=== PATIENT | female | born 1960 | race Caucasian/White ===

== ENCOUNTER → 2018-05-08 15:57 | Outpatient (CLI) | payer OTHER, SELFPAY ==
--- NOTE | 2018-05-08 16:01 | DI.RAD.S_ITS ---
PROCEDURE: XR CHEST 2V INDICATIONS: COUGH TECHNIQUE: 2 views of the chest were acquired. COMPARISON: None. FINDINGS: Surgical changes and devices: None. Lungs and pleura: No pleural effusions or pneumothorax. Lungs are clear. Mediastinum: Mediastinal contours are normal. Heart size is normal. Bones and chest wall: No suspicious bony abnormalities. Soft tissues appear unremarkable. IMPRESSION: No acute disease. Dictated by: Delmar Espinoza M.D. on 05/08/2018 at 17:05 Approved by: Delmar Espinoza M.D. on 05/08/2018 at 17:06
== END ==
PROVIDERS: Family Provider Family Medicine; PCP Family Medicine; Visit Provider Family Medicine
DX: R05 Cough (principal)
CPT/HCPCS: 71046

== ENCOUNTER → 2018-06-01 15:21 | Outpatient (CLI) | payer OTHER, SELFPAY ==
--- NOTE | 2018-06-01 | DI.MG.S_ITS ---
BILATERAL DIGITAL SCREENING MAMMOGRAM 3D/2D WITH CAD: 06/01/2018 CLINICAL: Routine screening. Family history of breast cancer. Comparison is made to exams dated: 05/12/2017 mammogram, 05/11/2016 mammogram, and 05/09/2015 mammogram - [facility]. The tissue of both breasts is heterogeneously dense. This may lower the sensitivity of mammography. Current study was also evaluated with a Computer Aided Detection (CAD) system. No significant masses, calcifications, or other findings are seen in either breast. There has been no significant interval change. IMPRESSION: NEGATIVE There is no mammographic evidence of malignancy. A 1 year screening mammogram is recommended. This exam was interpreted at Station ID: [id number]. NOTE: For mammograms, a report in lay terms will be sent to the patient. Approximately 15% of breast malignancies will not be visualized mammographically. In the management of a palpable breast mass, a negative mammogram must not discourage biopsy of a clinically suspicious lesion. Electronically Signed By: Cyn wilcox/karla:06/02/2018 09:17:33 letter sent: Normal Exam ACR BI-RADS Category 1: Negative [id number]
== END ==
PROVIDERS: Family Provider Family Medicine; PCP Family Medicine; Visit Provider Family Medicine
DX: Z12.31 Encounter for screening mammogram for malignant neoplasm of breast (principal); Z80.3 Family history of malignant neoplasm of breast
CPT/HCPCS: 77063; 77067

== ENCOUNTER 2019-06-23 20:13 | Observation (INO) | payer OTHER, SELFPAY ==
[2019-06-23] VITALS (7 sets, daily range): BP systolic 135–162; BP diastolic 79–92; PULSE 55–69; RESP 11–16; TEMP 36.4; O2SAT 96–100; BMI 25.4
--- NOTE | 2019-06-23 20:20 | ED.TRAUMA ---
HPI - Trauma General Chief Complaint: Trauma Stated Complaint: Modified trauma Time Seen by Provider: 06/23/19 20:19 Source: patient and EMS Mode of arrival: EMS Limitations: other (etoh) History of Present Illness HPI narrative: This is a 58-year-old female who comes with complaint of fall down the stairs patient does not know how long she was floor. She is complaining of left cheek pain as well as a cut and some pain over eye. Patient states she did couple alcoholic drinks today. She is complaining of neck pain or back pain but did complain weakness right arm. Patient denies any chest pain shortness breath. She had 1 episode of vomiting and route with EMS. Patient is able to move her lower extremities without any issue. She is able to lift her left arm without any issue. She denies any medical problems, denies any blood thinners. Denies any surgeries. She denies tobacco, states she does drink a couple alcoholics drinks daily, denies illicit. She is her is the 1 that found her on the floor. Related Data Home Medications Medication Instructions Recorded Confirmed Lactobacillus acidophilus 1 tab PO QDAY #0 05/31/16 06/23/19 ascorbic acid (vitamin C) 500 mg PO QDAY #0 05/31/16 06/23/19 magnesium citrate 100 mg PO QDAY #0 05/31/16 06/23/19 multivitamin [Multiple Vitamins] 1 tab PO QDAY #0 05/31/16 06/23/19 vitamin B complex [B 1 tab PO QDAY #0 05/31/16 06/23/19 Complex-Vitamin B12] Allergies Allergy/AdvReac Type Severity Reaction Status Date / Time Sulfa (Sulfonamide Allergy Unknown Verified 06/23/19 21:15 Antibiotics) [SULFA (SULFONAMIDE ANTIBIOTICS)] Review of Systems Review of Systems ROS Unobtainable: All systems reviewed & are unremarkable except as noted in HPI and below Patient History Social History household members: spouse Smoking Status: Never smoker alcohol intake: current Smoking Status: Never smoker alcohol intake frequency: 0-2 drinks per day Substance Use Type: does not use Exam Narrative Exam Narrative: GEN: C-collar prior to arrival Patient appears in mild distress. HEAD: Patient has a superficial 0.5 cm laceration of the left upper lid adjacent to the brow does not appear to be in the subcutaneous tissue, no raccoon/Rios sign. patient also has a 2nd small cm laceration of the right cheek. NECK: Nontender, painless range of motion, trachea midline Positive Nexus criteria, no line tenderness, distracting injury, altered mental status, neuro deficit, positive recent EtOH. EYES: PERRLA, EOMI ENT: Patient has swelling of the right upper eyelid, extraocular movements are intact, trachea is midline, TM's are normal no hemotypanum, Nares are clear, no septal hematoma, no dental or oral injury, airway is normal and with normal occlusion, No bony tenderness RESP: Chest is nontender and has symmetric movement, no ecchymosis, breath sounds are normal no crackles, wheezes or rales CVS: Heart sounds are normal, no murmur noted, No JVD. ABG/GI: Nontender, soft, normal bowel sounds, no distention, no organomegaly, pelvic rock is negative NEURO: Oriented AOx3, neuro is grossly intact, sensation and motor is normal all 4 extremities moving, cranial nerves II through XII are intact, GCS is 15 PSYCH: Normal mood and affect SKIN: Intact, warm and dry, no crepitus and without decubitus BACK: No CVA tenderness, no vertebral tenderness, no step-off's, no crepitus EXT: Atraumatic, hips are nontender, no pedal edema, normal color and temperature, normal range of motion of extremities with normal tendon exam, 2+ pulses in all four extremities Initial Vital Signs Initial Vital Signs: Vital Signs Temperature 97.5 F L 06/23/19 20:15 Pulse Rate 62 06/23/19 20:15 Respiratory Rate 16 06/23/19 20:15 Blood Pressure 162/92 H 06/23/19 20:15 Pulse Oximetry 100 06/23/19 20:15 Course Orders Ordered: ED Orders 06/23/19 20:35 Complete Blood Count AUTO DIFF Stat Comprehensive Metabolic Panel Stat Ethanol (ETOH) Stat Lipase Stat Partial Thromboplastin Time Stat Prothrombin Time INR Stat Troponin & CK Cardiac Panel Stat Type and Screen Stat Sodium Chloride (Normal Saline 0.9%) 1,000 mls @ 150 mls/hr IV CONT DILEEP Last Infusion: 06/23/19 22:00 Dose: 0 mls/hr Documented by: Admin: 06/23/19 20:40 Dose: 150 mls/hr Documented by: DAMION Discontinued Medications Diphtheria/Tetanus/Acell Pertussis (Adacel) 0.5 ml IM .ONCE ONE Stop: 06/23/19 21:10 Last Admin: 06/23/19 21:11 Dose: 0.5 ml Documented by: DAMION Morphine Sulfate (Morphine) 2 mg IV NOW ONE Stop: 06/24/19 00:04 Last Admin: 06/24/19 00:08 Dose: 2 mg Documented by: DAMION Ondansetron HCl (Zofran) 4 mg IV NOW ONE Stop: 06/23/19 21:55 Last Admin: 06/23/19 20:42 Dose: 4 mg Documented by: DAMION Ondansetron HCl (Zofran) 4 mg IV NOW ONE Stop: 06/23/19 22:43 Last Admin: 06/23/19 22:45 Dose: Not Given Documented by: DAMION Ondansetron HCl (Zofran) 4 mg IV NOW ONE Stop: 06/23/19 22:45 Last Admin: 06/23/19 22:45 Dose: 4 mg Documented by: DAMION Vital Signs Vital signs: Vital Signs - 8 hr 06/23/19 21:50 06/23/19 21:59 06/23/19 22:48 Pulse Rate 61 66 58 L Respiratory Rate 12 15 11 L Blood Pressure 135/80 Blood Pressure [Left Arm] 135/80 151/85 H Pulse Oximetry 100 100 98 06/23/19 23:21 Pulse Rate 69 Respiratory Rate 16 Blood Pressure Blood Pressure [Left Arm] 135/79 Pulse Oximetry 100 MDM - Trauma Lab Data Attestation: I reviewed the patient's lab results. Result diagrams: 06/23/19 20:35 06/23/19 20:35 Labs: Lab Results 06/23/19 06/23/19 06/23/19 Range/Units 20:35 20:35 20:35 WBC 7.9 (4.5-11.0) X10^3/uL RBC 4.24 (4.0-5.2) X10^6/uL Hgb 13.8 (12.0-16.0) g/dL Hct 40.3 (36-46) % MCV 94.9 (80-100) fL MCH 32.6 (26-34) PG MCHC 34.3 (30-36) % RDW 13.1 (11.6-14.8) % Plt Count 232 (150-400) X10^3/uL Neut % (Auto) 50.2 (50-75) % Lymph % (Auto) 39.9 (25-40) % Bacon % (Auto) 7.7 (3-14) % Eos % (Auto) 1.7 L (2-4) % Baso % (Auto) 0.5 (0-2) % Neut # (Auto) 3900 (3360-6763) /uL Lymph # (Auto) 3100 (5250-5639) /uL Bacon # (Auto) 600 (0-900) /uL Eos # (Auto) 100 (0-450) /uL Baso # (Auto) 0 (0-100) /uL PT 11.3 (10.1-12.7) SECONDS INR 1.0 (0.9-1.3) APTT 31 (26.4-36.2) SECONDS Sodium 136 L (137-145) mmol/L Potassium 3.4 (3.4-5.1) mmol/L Chloride 99 (98-107) mmol/L Carbon Dioxide 24 (22-32) mmol/L BUN 17 (7-17) mg/dL Creatinine 0.90 (0.52-1.04) mg/dL Estimated GFR > 60.0 (>60) mL/min BUN/Creatinine Ratio 18.9 (6-22) Glucose 99 (70-100) mg/dL Calcium 9.4 (8.4-10.2) mg/dL Total Bilirubin 0.5 (0.2-1.3) mg/dL AST 72 H (14-36) IU/L ALT 37 H (<35) IU/L Alkaline Phosphatase 74 (38-126) U/L Total Creatine Kinase 356 H (30-135) U/L CK-MB (CK-2) 5.35 H (<2.37) ng/mL CK-MB (CK-2) Rel Index 1.5 (1.5-5.0) % Troponin I < 0.012 (0.01-0.034) ng/mL Total Protein 7.0 (6.3-8.2) g/dL Albumin 4.5 (3.5-5.0) g/dL Globulin 2.5 (1.7-4.1) g/dL Albumin/Globulin Ratio 1.8 (1.0-2.8) Lipase 132 (23-300) U/L Ethyl Alcohol 123 H ( - 10) mg/dL Blood Type Antibody Screen 06/23/19 Range/Units 20:35 WBC (4.5-11.0) X10^3/uL RBC (4.0-5.2) X10^6/uL Hgb (12.0-16.0) g/dL Hct (36-46) % MCV (80-100) fL MCH (26-34) PG MCHC (30-36) % RDW (11.6-14.8) % Plt Count (150-400) X10^3/uL Neut % (Auto) (50-75) % Lymph % (Auto) (25-40) % Bacon % (Auto) (3-14) % Eos % (Auto) (2-4) % Baso % (Auto) (0-2) % Neut # (Auto) (8030-0606) /uL Lymph # (Auto) (8362-2807) /uL Bacon # (Auto) (0-900) /uL Eos # (Auto) (0-450) /uL Baso # (Auto) (0-100) /uL PT (10.1-12.7) SECONDS INR (0.9-1.3) APTT (26.4-36.2) SECONDS Sodium (137-145) mmol/L Potassium (3.4-5.1) mmol/L Chloride (98-107) mmol/L Carbon Dioxide (22-32) mmol/L BUN (7-17) mg/dL Creatinine (0.52-1.04) mg/dL Estimated GFR (>60) mL/min BUN/Creatinine Ratio (6-22) Glucose (70-100) mg/dL Calcium (8.4-10.2) mg/dL Total Bilirubin (0.2-1.3) mg/dL AST (14-36) IU/L ALT (<35) IU/L Alkaline Phosphatase (38-126) U/L Total Creatine Kinase (30-135) U/L CK-MB (CK-2) (<2.37) ng/mL CK-MB (CK-2) Rel Index (1.5-5.0) % Troponin I (0.01-0.034) ng/mL Total Protein (6.3-8.2) g/dL Albumin (3.5-5.0) g/dL Globulin (1.7-4.1) g/dL Albumin/Globulin Ratio (1.0-2.8) Lipase (23-300) U/L Ethyl Alcohol ( - 10) mg/dL Blood Type O Positive Antibody Screen Negative Urine Dip Bedside Urine Glucose Negative Bedside Urine Bilirubin - Negative Bedside Urine Ketone +/- 5 Urine Specific [place] 1.005 Bedside Urine Occult Blood - Negative Bedside Urine pH 6.0 Bedside Urine Protein - Negative Bedside Urine Urobilinogen - Negative Bedside Urine Nitrite - Negative Bedside Urine Leukocytes - Negative Esterase Imaging Data Chest x-ray: Radiologist's impression: [address] [address] XRay Report Signed Patient: Zenaida Pfeiffer LMR#: [id number] : 1960Acct:[id number] Age/Sex: 58 / FDate of Service: 06/23/19 Loc: ED Accession Number: [id number] Procedure: XR chest 1V Ordering Provider: Nellie Walls D.O. PROCEDURE: XR CHEST 1V INDICATIONS: left cheek pain, small lac over left lid TECHNIQUE: One view of the chest was acquired. COMPARISON: [facility], , XR CHEST 2V, 05/08/2018, 15:40. FINDINGS: Surgical changes and devices: None. Lungs and pleura: Lungs are clear. No pleural effusions or pneumothorax. Mediastinum: Mediastinal contours appear normal. Heart size is normal. Bones and chest wall: No suspicious bony lesions. Overlying soft tissues appear unremarkable. IMPRESSION: No acute cardiopulmonary disease. Dictated by: Chaim Rizvi M.D. on 06/23/2019 at 20:51 Approved by: Chaim Rizvi M.D. on 06/23/2019 at 20:52 Pelvic x-ray: Radiologist's impression: [address] [address] XRay Report Signed Patient: Zenaida Pfeiffer LMR#: [id number] : 1960Acct:[id number] Age/Sex: 58 / FDate of Service: 06/23/19 Loc: ED Accession Number: [id number] Procedure: XR pelvis 1-2V Ordering Provider: Nellie Walls D.O. PROCEDURE: XR PELVIS 1-2V INDICATIONS: left cheek pain, small lac over left lid TECHNIQUE: 1 view(s) of the pelvis acquired. COMPARISON: None. FINDINGS: Bones: No fractures or dislocations. No suspicious bony lesions. Soft tissues: Visualized bowel gas pattern is normal. No suspicious soft tissue calcifications. IMPRESSION: No fracture or dislocation. Dictated by: Chaim Rizvi M.D. on 06/23/2019 at 20:52 Approved by: Chaim Rizvi M.D. on 06/23/2019 at 20:53 CT scan - head: Radiologist's impression: [place] [address] CT Scan Report Signed Patient: Zenaida Pfeiffer LMR#: [id number] : 1960Acct:[id number] Age/Sex: 58 / FDate of Service: 06/23/19 Loc: ED Accession Number: [id number] Procedure: CT head/brain wo con Ordering Provider: Nellie Walls D.O. PROCEDURE: CT HEAD/BRAIN WO CON INDICATIONS: cheek pain, small lac over eyelid TECHNIQUE: Noncontrast 4.5 mm thick angled axial sections acquired from the foramen magnum to the vertex, with coronal and sagittal reformats. For radiation dose reduction, the following was used: automated exposure control, adjustment of mA and/or kV according to patient size. COMPARISON: None. FINDINGS: Image quality: Excellent. CSF spaces: Basal cisterns are patent. No extra-axial fluid collections. Ventricles are normal in size and shape. Brain: No midline shift. No intracranial masses or hemorrhage. Daniel-white matter interface is normal. Skull and face: Right orbital fracture, and maxillary sinus wall fracture and zygomatic arch fracture. Sinuses: The right maxillary sinus is opacified, likely secondary hematoma. Muscle is are clear. IMPRESSION: 1. No acute intracranial abnormalities. 2. Facial bone fractures. Please see separate facial bone CT for detail. 3. Opacification of the right maxillary sinus consistent with hematoma. Dictated by: Chaim Rizvi M.D. on 06/23/2019 at 21:18 Approved by: Chaim Rizvi M.D. on 06/23/2019 at 21:22 CT scan C-spine: Radiologist's impression: [address] [address] [address] Scan Report Signed Patient: Zenaida Pfeiffer LMR#: [id number] : 1960Acct:[id number] Age/Sex: 58 / FDate of Service: 06/23/19 Loc: ED Accession Number: [id number] Procedure: CT cervical spine wo con Ordering Provider: Nellie Walls D.O. PROCEDURE: CT CERVICAL SPINE WO CON INDICATIONS: FALL DOWN STAIRS TECHNIQUE: Noncontrast 3 mm thick sections acquired from the skull base to the T4 level. Sagittal and coronal reformats were then constructed. For radiation dose reduction, the following was used: automated exposure control, adjustment of mA and/or kV according to patient size. COMPARISON: [facility], CT, CT CHEST ABD PEL W CON, 06/23/2019, 20:25. FINDINGS: Image quality: Excellent. Bones: No fractures or dislocations. There is moderate degenerative disease at C5-C6. Visualized superior ribs are intact. Soft tissues: Prevertebral soft tissues are normal in thickness. No paravertebral hematomas. No apical pneumothoraces. IMPRESSION: 1. No cervical spine fracture. 2. Moderate degenerative disc disease. Dictated by: Chaim Rizvi M.D. on 06/23/2019 at 21:22 Approved by: Chaim Rizvi M.D. on 06/23/2019 at 21:27 CT facial bones: Radiologist's impression: Zenaida Pfeiffer Yamileth 58 F [address] [address] [address] Scan Report Signed Patient: Zenaida Pfeiffer LMR#: [id number] : 1960Acct:[id number] Age/Sex: 58 / FDate of Service: 06/23/19 Loc: ED Accession Number: [id number] Procedure: CT facial bones wo con Ordering Provider: Nellie Walls D.O. PROCEDURE: CT FACIAL BONES WO CON INDICATIONS: RIGHT cheek pain, small lac over RIGHT lid, FALL DOWN STAIRS TECHNIQUE: Noncontrast 2.5 mm thick axial images acquired from the mandible through the frontal sinuses, with coronal and sagittal reformatting. For radiation dose reduction, the following was used: automated exposure control, adjustment of mA and/or kV according to patient size. COMPARISON: None. FINDINGS: Image quality: Excellent. Bones and teeth: There is comminuted, displaced fracture of the right lateral orbital wall. In addition, there is a common fracture of the right orbital floor with mild inferior displacement. The right globe is intact Comminuted fracture of the anterior wall, roof (floor of the orbit), posterior lateral wall and floor of the right maxillary sinus. Nondisplaced zygomatic arch fracture. Nasal bones and septum are intact. Visualized portions of the mandible demonstrate no fractures or subluxation. Pterygoid plates are intact. Visualized portions of the skull base and auditory canals are intact. Sinuses: There is an air-fluid level in the right maxillary sinus consistent hematoma. Mastoid air cells are aerated. Soft tissues: Mild preorbital soft tissue contusion. No enlarged lymph nodes. No soft tissue lacerations or debris. Vascular: Visualized vascular structures appear normal in the absence of contrast. Bony vascular foramina and canals are intact. IMPRESSION: 1. Comminuted, displaced fractures of the right lateral orbital wall and right orbital floor. 2. Comminuted fractures of the anterior wall, roof (floor of the orbit), posterior lateral wall and floor of the right maxillary sinus. There is an air-fluid level in the right maxillary sinus consistent hematoma. 3. Nondisplaced zygomatic arch fracture. Dictated by: Chaim Rizvi M.D. on 06/23/2019 at 21:27 Approved by: Chaim Rizvi M.D. on 06/23/2019 at 21:39 CT chest abdomen pelvis: Radiologist's impression: [place] [address] CT Scan Report Signed Patient: Zenaida Pfeiffer LMR#: [id number] : 1960Acct:[id number] Age/Sex: 58 / FDate of Service: 06/23/19 Loc: ED Accession Number: [id number] Procedure: CT chest abd pel w con Ordering Provider: Nellie Walls D.O. PROCEDURE: CT CHEST ABD PEL W CON INDICATIONS: cheek pain, small lac over lid, FALL DOWN STAIRS TECHNIQUE: After the administration of intravenous contrast, 5 mm thick sections acquired from the lung apices to the symphysis. 2.5 mm thick coronal and sagittal reformats were acquired. Additional 7 mm thick coronal maximum intensity projection (MIP) reformats acquired through the lungs. Optional 10-minute delayed imaging may be performed from the kidneys to the bladder. For radiation dose reduction, the following was used: automated exposure control, adjustment of mA and/or kV according to patient size. COMPARISON: [facility], CR, XR PELVIS 1-2V, 06/23/2019, 20:19. [facility], CT, ABDOMEN/PELVIS WITH CONTRAST, 10/26/2010, 11:55. [facility], CT, ABDOMEN WITH CONTRAST, 08/11/2009, 14:50. [facility], CR, XR CHEST 1V, 06/23/2019, 20:19. FINDINGS: Image quality: Excellent. CHEST: Lungs: No pulmonary contusions or lacerations. No acute airspace opacities. No pneumothorax or hemothorax. Central and peripheral airways appear patent and normal in caliber. Mediastinum: No mediastinal hematomas. Heart size is normal. No pericardial effusion. Thoracic aorta and pulmonary arteries demonstrate normal size and enhancement. No mediastinal or hilar adenopathy. Esophagus is normal in caliber. No hiatal hernia. Chest wall: No rib fractures. No subcutaneous emphysema. No axillary or supraclavicular adenopathy. Thyroid gland is normal. ABDOMEN: Solid organs: Liver is normal in size and enhancement, without lacerations. Gallbladder is normal. Biliary system is non-dilated. Pancreas enhances normally, without transection. Spleen is normal in size and enhancement, without lacerations. No adrenal hematomas. Both kidneys enhance normally, without hydronephrosis or lacerations. Peritoneum and bowel: No free fluid or air. Unenhanced bowel loops demonstrate normal wall thickness and caliber. Nodes and vessels: No retroperitoneal or mesenteric adenopathy. Aorta and inferior vena cava are normal in size and enhancement. Miscellaneous: No ventral hernias. PELVIS: Genitourinary: Bladder wall thickness is normal. Miscellaneous: No inguinal hernias or adenopathy. Bones: Pelvic ring and hip joints appear intact. No vertebral compression fractures. IMPRESSION: 1. No acute traumatic injuries identified in thorax, abdomen or pelvis. Dictated by: Chaim Rizvi M.D. on 06/23/2019 at 21:39 Approved by: Chaim Rizvi M.D. on 06/23/2019 at 21:46 ECG Data Attestation: I personally reviewed and interpreted this ECG as follows: Interpretation: Sinus rhythm rate of 69 P are 173 QRS of 105 and QTC of 460. No ST elevation appreciated. MDM Narrative Medical decision making narrative: Patient comes in with fall from about 4 5 steps. Was actually witnessed by the , patient has complaint of pain of the right eye and cheek. Um on imaging head CT, C-spine and chest abdomen pelvis do not show any acute findings other than on her facial bones she does have orbital fractures as well as maxillary and zygomatic arch. Patient did have this additional imaging as she did not initially as there was concern that she had several alcoholic drinks this evening. CBC and coags are negative, sodium is 136 with AST ALT of 72 in 37. Total CK is 356. Negative troponin. Toxicology shows a alcohol of 123. I spoke with Dr. Logan Sanchez from ENT, he recommends follow-up with Ophthalmology Tuesday for orbital floor fractures. There does not appear to be any sign of entrapment. Patient does not have any vision changes. He will be happy to have the patient follow up with ENT for her maxillary and zygomatic arch on recommends calling Tuesday for an appointment. If patient needs further treatment for her facial bone fractures they would referred to [facility] as an outpatient. Patient is quite nauseated and vomited several times even being set up just in bed. She likely has a concussion as she did take a direct blow to the head. I spoke with Dr. Brock who accepts for observation. Discharge Plan Departure Patient Disposition: Admitted as Observation Clinical Impression: Closed fracture of orbital wall, Fracture of right side of maxilla, Closed fracture of right zygomatic arch, Concussion Discharge Date/Time: 06/24/19 00:28 Admit Date/Time: 06/23/19 23:25 Admit Provider: Edgar Brock
[2019-06-23] MEDS: SODIUM CHLORIDE 0.9% 1,000 ML 150 ML IV (20:40)
[2019-06-23] MEDS: ONDANSETRON 4 MG/2 ML INJ IV ×2 (20:42→22:45)
[2019-06-23 20:48] LABS: Add Manual Diff / Slide Review NO; Basophils Absolute Auto 0 /uL (0-100); Basophils Percent Auto 0.5 % (0-2); Eosinophils Absolute Auto 100 /uL (0-450); Eosinophils Percent Auto 1.7 % (2-4); Hematocrit 40.3 % (36-46); Hemoglobin 13.8 g/dL (12.0-16.0); Lymphocytes Absolute Auto 3100 /uL (1100-4500); Lymphocytes Percent Auto 39.9 % (25-40); Mean Corpuscular HGB Conc 34.3 % (30-36); Mean Corpuscular Hemoglobin 32.6 PG (26-34); Mean Corpuscular Volume 94.9 fL (80-100); Monocytes Absolute Auto 600 /uL (0-900); Monocytes Percent Auto 7.7 % (3-14); Neutrophils Absolute Auto 3900 /uL (1500-7000); Neutrophils Percent Auto 50.2 % (50-75); Platelet Count 232 X10^3/uL (150-400); Red Blood Cell Count 4.24 X10^6/uL (4.0-5.2); Red Cell Distribution Width 13.1 % (11.6-14.8); White Blood Cell Count 7.9 X10^3/uL (4.5-11.0)
[2019-06-23 20:52] LABS: Prothrombin Time 11.3 SECONDS (10.1-12.7)
[2019-06-23 20:55] LABS: PTT Partial Thromboplastin Tim 31 SECONDS (26.4-36.2)
[2019-06-23] MEDS: TET,DIPH,PERTUSS(ACELL),VAC/PF 0.5 ML SYRINGE IM (21:11)
[2019-06-23 21:42] LABS: Alanine Aminotransferase 37 IU/L (<35); Albumin 4.5 g/dL (3.5-5.0); Albumin Globulin Ratio 1.8 (1.0-2.8); Alkaline Phosphatase 74 U/L (38-126); Aspartate Aminotransferase 72 IU/L (14-36); BUN Creatinine Ratio 18.9 (6-22); Bilirubin Total 0.5 mg/dL (0.2-1.3); Blood Urea Nitrogen 17 mg/dL (7-17); Calcium 9.4 mg/dL (8.4-10.2); Carbon Dioxide 24 mmol/L (22-32); Chloride 99 mmol/L (98-107); Creatine Kinase 356 U/L (30-135); Estimated Glomerular Filt Rate > 60.0 mL/min (>60); Globulin 2.5 g/dL (1.7-4.1); Glucose 99 mg/dL (70-100); HEMOLYSIS < 15 (0-50); Lipase 132 U/L (23-300); Potassium 3.4 mmol/L (3.4-5.1); Sodium 136 mmol/L (137-145)
[2019-06-23 21:51] LABS: Ethanol (ETOH) 123 mg/dL
[2019-06-23 21:54] LABS: Troponin I < 0.012 ng/mL (0.01-0.034)
[2019-06-23 22:05] LABS: CKMB % Relative Index 1.5 % (1.5-5.0); Creatine Kinase MB 5.35 ng/mL (<2.37)
--- NOTE | 2019-06-23 22:46 | PC.NURSE ---
Per Dr Walls, gradually sitting patient up in bed, pt at 45degrees and began to be nauseous and vomit, small amount of emesis. Pt assisted with emesis bag, order received for zofran.
[2019-06-24] VITALS: BP 126/79; PULSE 60; RESP 12; TEMP 36.3; O2SAT 99
[2019-06-24] MEDS: MORPHINE 2 MG/ML INJ IV (00:08)
--- NOTE | 2019-06-24 00:29 | PC.NURSE ---
Steri strips to right eye
[2019-06-24 00:40] VITALS: BP 146/92; PULSE 63; RESP 16; TEMP 36.1; O2SAT 99
[2019-06-24 00:53] VITALS: BMI 22.9
[2019-06-24 07:56] VITALS: PULSE 63; O2SAT 100
[2019-06-24] MEDS: ACETAMINOPHEN 325 MG TABLET 650 MG PO ×3 (08:59→21:23)
[2019-06-24] MEDS: LACTATED RINGERS 1,000 ML 125 ML IV (08:59)
[2019-06-24] MEDS: ONDANSETRON 4 MG/2 ML INJ IV (09:00)
[2019-06-24 09:35] VITALS: BP 150/76; PULSE 67; RESP 16; TEMP 36.3; O2SAT 99
--- NOTE | 2019-06-24 12:28 | CM.DANOTE ---
Addendum entered by Ruth Cornelius 06/24/19 12:37: Patient has several facial injuries secondary to her fall. Patient also with complaints that her right side hurts. Patient aware that she most likely will need to follow up with ENT as outpatient for facial fx repairs. JORGE LUIS Original Note: DCP/Assessment: Reviewed chart. Patient is a 58yr old female admitted to . under OBS status after a fall down the stairs. PCP is Dr. Cazares. Primary payor is 1)[facility]. Met with patient, spouse/Hua, and LUIS ALBERTO/Melia at bedside explained CM/SW role. Patient alert and oriented at time of visit resting in bed comfortably. Patient reports that she is completely I in all ADL's prior to fall. Patient admits to having a few alcoholic beverages prior to falling down the stairs. Patient denies any issues related to alcoholism. No resources provided or requested. Therapy evaluation pending today. Patient hopes to be able to d/c later this afternoon. Notified patient that if any d/c planning issues arise RENEWAL SPECIALIST name/number on white board. Patient appreciative. Alcohol level 123 at time of admit. P: Anticipate home with supportive family when medically stable. Patient denies that need for community resources at this time. PETRA Montiel Discharge Planning/Care Management Discharge Assessment Start: 06/24/19 12:19 Freq: Status: Active Protocol: Document 06/24/19 12:19 JORGE LUIS (Rec: 06/24/19 12:28 JORGE LUIS [id number]) Discharge Planning Assessment Assigned Medical Record Librarians Teacher PETRA Montiel Contact Information Hua Graham (spouse) [phone] Advance Directives? No Advance Directives on File No History Provided By Patient,Family Member,Medical Record Prior Living Arrangements House Household Members spouse Type of transporation used prior to Drives own vehicle admit Willing to Return to Facility? Yes Independent with ADL's Yes Is patient alert and oriented? Yes Caregiver for Another No Comment Therapy evalution pending. Pateint plans to return home with supportive family. Discharge Plan Home Transportation Arrangement Family to provide transport. Whiteboard Updated in Patient Room with Yes name and ext. # of Medical Record Librarians Teacher Review Status In Process Next Review Type Continued Stay Review
--- NOTE | 2019-06-24 13:47 | PM.HP.1 ---
History of Present Illness History of Present Illness Date Patient Seen: 06/24/19 Time Patient Seen: 10:47 Chief complaint: Modified trauma Narrative: The patient is a woman who was admitted overnight through the emergency room. She fell down a flight of stairs and had a brief 2nd loss of consciousness according to her who apparently witnessed the event. The patient complains of right face and cheek pain and right chest wall pain. She has no other complaints of pain. She denies any hearing loss. No double vision or visual changes. She is seeing normally for her. It does hurt open her mouth wide. The pain is in her cheek however. She had been nauseated and was dizzy with standing and that has improved overnight. She is no longer feeling even nauseated or dizzy though she has been out of bed and very limited amount to go to the bathroom. Patient History Surgical History History of appendectomy (Acute) Family & Social History Social History: household members spouse Prior Living Arrangements House Safety & Behavioral: Feels Safe in Current Yes Environment Been Physically Hurt or No Threatened By a Person Suicidal Ideation Description None Suicide Plan Description No Plan Tobacco & Substance use: Smoking Status Never smoker alcohol intake current alcohol intake frequency 0-2 drinks per day Substance Use Type does not use Meds Home Medications and Allergies Home Medications Medication Instructions Recorded Confirmed Type Lactobacillus acidophilus 1 tab PO QDAY #0 05/31/16 06/23/19 History ascorbic acid (vitamin C) 500 mg PO QDAY #0 05/31/16 06/23/19 History magnesium citrate 100 mg PO QDAY #0 05/31/16 06/23/19 History multivitamin [Multiple Vitamins] 1 tab PO QDAY #0 05/31/16 06/23/19 History vitamin B complex [B 1 tab PO QDAY #0 05/31/16 06/23/19 History Complex-Vitamin B12] Allergies Allergy/AdvReac Type Severity Reaction Status Date / Time Sulfa (Sulfonamide Allergy Unknown Verified 06/23/19 21:15 Antibiotics) [SULFA (SULFONAMIDE ANTIBIOTICS)] Review of Systems Review of Systems Narrative: Patient denies pain arise earache sore throats no cough cold or asthma. No chest pain or heart problems. No black or bloody bowel movements. No seizures or blackouts. No anxiety or depression. No unusual bruising or bleeding. Exam Vital Signs (past 8 hours): - 06/24/19 07:56 06/24/19 09:35 Temperature 97.3 F L Pulse Rate 63 67 Respiratory Rate 16 Blood Pressure 150/76 H Pulse Oximetry 100 99 Oxygen Delivery Method Room Air Oxygen Flow Rate 0 Narrative Exam Narrative: No apparent distress. Right eye is bruised. Mild swelling of the lids. Face otherwise fairly normal in appearance. A little dried blood on her lateral forehead and a drop on her ear. Hearing grossly normal. Small subconjunctival hemorrhage at the edge of her right iris. The iris looks intact. Pupils equal round reactive to light. No photophobia. Her extra ocular movements are completely intact. Tongue is midline. Except for the bruising about the right eye the face is symmetric. Teeth are intact. No TMJ tenderness. Patient has tenderness along the right zygoma. No tenderness upper orbital rim. No tenderness of the mandible. There are no nodes in the neck or supraclavicular areas. Trachea is midline mobile. No crepitance. Thyroid is not enlarged. There are no masses neck or thyroid. No cervical or thoracic spine tenderness. Lungs are clear to auscultation without rales or rhonchi. Equal percussion. Patient has chest wall tenderness anterior just inferior to the breast on the right. No other chest wall tenderness. No chest wall crepitance. Heart regular rate and rhythm without murmur gallop. No heave lift or thrill. Chest wall percuss is equally bilaterally abdomen is scaphoid soft nontender without mass. No ventral hernias. Scar in the right lower quadrant from her appendectomy is noted. Extremities without cyanosis clubbing or edema. No bony deformities. Bruising noted over the left index digit knuckle but there is no tenderness. The patient is alert and oriented x3. Speech rate and content are appropriate affect is appropriate. Patient's extraocular movements are intact. Tongue is midline. Face is symmetric. Shrug normal strength 2+ and equal. Strength of biceps triceps oyster sorter leg elevation foot extension and flexion all 2+ equal and normal. Reflexes biceps and forearm 1+ patella 1+ bilaterally. Objective Labs Result Diagrams: 06/23/19 20:35 06/23/19 20:35 Labs: Laboratory Results - last 24 hr 06/23/19 06/23/19 06/23/19 20:35 20:35 20:35 WBC 7.9 RBC 4.24 Hgb 13.8 Hct 40.3 MCV 94.9 MCH 32.6 MCHC 34.3 RDW 13.1 Plt Count 232 Neut % (Auto) 50.2 Lymph % (Auto) 39.9 [place] % (Auto) 7.7 Eos % (Auto) 1.7 L Baso % (Auto) 0.5 Neut # (Auto) 3900 Lymph # (Auto) 3100 [place] # (Auto) 600 Eos # (Auto) 100 Baso # (Auto) 0 PT 11.3 INR 1.0 APTT 31 Sodium 136 L Potassium 3.4 Chloride 99 Carbon Dioxide 24 BUN 17 Creatinine 0.90 Estimated GFR > 60.0 BUN/Creatinine Ratio 18.9 Glucose 99 Calcium 9.4 Total Bilirubin 0.5 AST 72 H ALT 37 H Alkaline Phosphatase 74 Total Creatine Kinase 356 H CK-MB (CK-2) 5.35 H CK-MB (CK-2) Rel Index 1.5 Troponin I < 0.012 Total Protein 7.0 Albumin 4.5 Globulin 2.5 Albumin/Globulin Ratio 1.8 Lipase 132 Ethyl Alcohol 123 H Blood Type Antibody Screen 06/23/19 20:35 WBC RBC Hgb Hct MCV MCH MCHC RDW Plt Count Neut % (Auto) Lymph % (Auto) [place] % (Auto) Eos % (Auto) Baso % (Auto) Neut # (Auto) Lymph # (Auto) [place] # (Auto) Eos # (Auto) Baso # (Auto) PT INR APTT Sodium Potassium Chloride Carbon Dioxide BUN Creatinine Estimated GFR BUN/Creatinine Ratio Glucose Calcium Total Bilirubin AST ALT Alkaline Phosphatase Total Creatine Kinase CK-MB (CK-2) CK-MB (CK-2) Rel Index Troponin I Total Protein Albumin Globulin Albumin/Globulin Ratio Lipase Ethyl Alcohol Blood Type O Positive Antibody Screen Negative Assessment & Plan Assessment & Plan narrative: Facial fractures (orbital fractures, zygoma, maxillary sinus) ER spoke with ENT and I spoke with Dr. Felder. Dr. Felder will review the films and contact the patient. Awaiting return call from ophthalmology on-call. Will increase pain to med to include oxycodone. Concussion acute with dizziness and nausea secondary to fall. Symptoms seemed to have resolved. Patient also appears to be having some slightly in coordination with her right arm according to PT. Will keep her in observation for now. May need to repeat a CT of her head should something worsen. Quality VTE Deep Vein Thrombosis/Pulmonary Embolism Present on Admission: No
--- NOTE | 2019-06-24 14:44 | PT.IIE ---
Surgical History (Last Reviewed 06/24/19 @ 13:51 by Edgar Brock MD) History of appendectomy (Acute) Physical Therapy Inpatient Evaluation/Re-Eval M1 PT/OT-IP Prior Functional Status Start: 06/24/19 11:05 Freq: NEEDED Status: Active Protocol: Document 06/24/19 13:59 AW (Rec: 06/24/19 14:44 AW [id number]) Medical Review Prior Functional Status Medical History Reviewed Yes Diet/Fluid Consistency Regular Communication WNL Mobility and Gait Independent without assistive device and without limitation in distance. Pt was active in [email or web address], enjoyed hiking and cycling. Activities of Daily Living and IADL's Independent Prior Functional Level (Other details) Pt reports no other falls in the last 18 months. She does admit falling 18 months ago but states she was not injured . Social History Household Members spouse Living Arrangements House Number of Floors (Floors) Two Floors Number of Stairs To Enter/Railing? 3 LI without railing. 14 steps to upstairs bedrooms. 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 She lives with her spouse who is retired and available to assist as needed. M2 PT-IP Current Condition Start: 06/24/19 11:05 Freq: NEEDED Status: Active Protocol: Document 06/24/19 13:59 AW (Rec: 06/24/19 14:44 AW [id number]) Physical Therapy Current Condition Current Condition Evaluation Date 06/24/19 Treatment Diagnosis concussion s/p fall down stairs, impaired mobility Onset Date 06/23/19 Precautions Other Precautions concussion Weight Bearing Status Weight Bearing Status Full Weight Bearing M3 PT-IP Subjective Start: 06/24/19 11:05 Freq: NEEDED Status: Active Protocol: Document 06/24/19 13:59 AW (Rec: 06/24/19 14:44 AW [id number]) Subjective Physical Therapy Visit Type Type Initial Evaluation Visit Start Time 13:25 Visit Stop Time 13:55 Total Visit Minutes 30 Notes Pt's spouse present throughout evaluation Number of VENDOR QUALITY SUPERVISOR Visits 0 Physical Therapy Visit Comments Patient Comments Pt is tired and has complaints of right-sided rib pain and right-sided facial pain, but is willing to work with therapy Patient Goals To go home with spouse support Therapy Pain Assessment Pain When Pain Assessed During Mobility Pain Present Pain Present Pain Reported Location Right Face Scale Used pain not quantified Pain Behaviors Facial Grimacing,Wincing Pain Management Techniques Apply Cold,Timing of Activity with Medications M4 PT-IP Mobility and Gait Start: 06/24/19 11:05 Freq: NEEDED Status: Active Protocol: Document 06/24/19 13:59 AW (Rec: 06/24/19 14:44 AW [id number]) PT-Bed Mobility Assessment Supine to Sit Supine to Sit Standby Assistance Sit to Supine Sit to Supine Standby Assistance Scooting Scooting to Edge of Bed Standby Assistance PT-Transfer Assessment Sit to and From Stand Sit to and from Stand Standby Assistance Equipment Transfer Assistive Device Gait Belt Transfers Transfer Destination Bed Transfer Technique pt ambulated without AD Transfer Ability Level of Assist Standby Assistance Comments Mobility Comments Pt completed all bed mobility and transfers with no more than SBA. She did report increased facial pain with mobility but did not attempt to quantify. Gait Assessment Gait Gait Assistance Required: Standby Assistance Distance (Feet) 400 Able to Maintain Weight Bearing Status Yes During Gait Assistive Devices Assistive Device Gait Belt Orthotic/Prosthetic Devices or Brace: No Gait Deviations General Gait Pattern Antalgic,Decreased Stride Length,Decreased Feet Clearance Factors Limiting Gait Function Factors Limiting Gait Function Decreased Activity Tolerance, Pain Comments Gait Comments Pt ambulated ~100 feet using IV pole for support SBA. She continued another 300 feet without UE support or assistive device SBA. Pt was able to perform head turns, nods, obstacle navigation, and changes in gait speed without significant path deviation or loss of balance. However, changes in gait speed were minimal and pt did have minor loss of balance with pivot turns but was able to recover without assist. Stair Climbing Assessment Evaluation Level of Assist On Stairs Standby Assistance Devices Stair Climbing Assistive Devices None Technique/Endurance Stair Climbing Direction Ascend and Descend Stair Climbing Technique Step Over Step,Step to Step Number of Steps Climbed 3 Query Text: Stair Climbing Set # Repetitions (reps) 3 Comments Stair Climbing Comments Pt ascended/descended 3 steps x 2 with step over step pattern SBA but complained of increased right-sided thorax pain while descending. On 3rd trial, she descended with step -to pattern and less pain SBA. PT-Balance Assessment Sitting Balance and Reactions Static Sitting Balance Ability Good Dynamic Sitting Balance Ability Good Standing Balance and Reactions Static Standing Balance Ability Good Dynamic Standing Balance Ability Good Comments Other Balance Tests/Deviations/Treatment See gait description for : description of informal dynamic gait testing. M5 PT-IP Objective Assessments Start: 06/24/19 11:05 Freq: NEEDED Status: Active Protocol: Document 06/24/19 13:59 AW (Rec: 06/24/19 14:44 AW [id number]) Orientation Orientation/Cognition Level of Alertness Alert Orientation Name,Day of Week,Place, Situation Language Function Ability No Deficits Noted Safety Awareness Understands Safety Issues Memory Description No Deficits Noted Comments Pt is alert and not confused but clearly not at her baseline for mentation Gross Range of Motion Upper Extremity ROM Assessment Within Functional Limits Lower Extremity ROM Assessment Within Functional Limits Strength Upper Extremity Strength Assessment Bilaterally Impaired Shoulder abduction impaired 2/2 pain Lower Extremity Strength Assessment Within Functional Limits Comments Strength Comments BLE grossly 4+/5 Coordination Assessment Gross Coordination Gross Coordination Impaired Assessment Finger to Nose Test Minimal Impairment Pronation/Supination Test Normal Performance Heel on Gaytan Test Normal Performance Coordination Comments Pt exhibited signs of dysmetria with missed targets ~2 cm using R UE for finger to nose eyes closed and finger meir eyes open. Sensation Assessment Sensation Gross Sensation Right LE Impaired Light Touch Impaired Comments Sensation Comments Pt reports baseline numbness of 2nd right toe. Muscle Tone Muscle Tone WNL Yes Other Assessments Other Other Assessments Pt reports inability to fully open her jaw. On exam, she was not able to fit two finger widths vertically between upper and lower teeth. She notes that she had audible clicking prior to her fall, but the limited range of motion is new since the fall. M6 PT-IP Treatment Start: 06/24/19 11:05 Freq: NEEDED Status: Active Protocol: Document 06/24/19 13:59 AW (Rec: 06/24/19 14:44 AW [id number]) Physical Therapy Treatment Education Education Provided Precautions,Safety Other Treatments Other Treatment Performed Educated pt and her spouse about grading her return to activity over the next several days and weeks, advising her to rest and to stay away from computers/screens as needed to minimize symptoms of dizziness, increased facial pain, vision changes. Encouraged pt to take short walks as tolerated with SBA for safety. M7 PT-IP Assessment and Plan Start: 06/24/19 11:05 Freq: NEEDED Status: Active Protocol: Document 06/24/19 13:59 AW (Rec: 06/24/19 14:44 AW [id number]) PT Summary Assessment and Plan Potential Rehabilitation Potential Excellent Status of Condition at Evaluation Evolving Summary Impairments Pain,Strength,Coordination, Transfers,Gait,Activity Tolerance Assessment Summary Pt is a 58 yo woman seen for PT evaluation 1 day after a fall down stairs which resulted in concussive symptoms and facial fractures. She was independent in all regards prior to this event. She now presents with slightly diminished mentation possibly due to pain. She denies dizziness, but does present as somewhat unsteady in gait requiring no more than SBA. She exhibits good safety awareness and understands the need to take precautions and have someone with her while up . Pt hopes to travel by plane to [place] on Tuesday. This PT encouraged her to see ENT before she goes. PT encouraged pt and her spouse to gradually increase her activity with SBA as tolerated and to potentially consider outpatient PT. She will be safe to discharge home with spouse assist once cleared medically. Goals Bed Mobility Goal Independent Transfer Goal Independent Gait Goal Independent Gait Distance 400 Other Goals - Pt will navigate up/down 3 steps without railing SBA - Pt will ambulate independent and perform pivot turns without loss of balance SBA Days to Meet Goals 1 Frequency of Treatment Frequency Of Treatment Once a Day Treatment Plan Physical Therapy Treatment Plan Gait Training,Balance Retraining,Discharge Planning, Neuromuscular Re-ed, Coordination Retraining Other Recommendations and Next Treatment ambulation with vestibular Focus challenge stairs Recommendations To Nursing Amount of Assist Needed Standby Assistance Discharge Recommendations PT Discharge Recommendations Home with Assistance, Outpatient PT
--- NOTE | 2019-06-24 14:44 | PC.NURSE ---
GI/Neuro: Edema and bruising the rt side of face, under the neck, no visual changes, some nause this am and she got some zofran, also having pain and received tylenol w/fair relief only. Md has ordered some oxycodone and pt has received first dose. Hopefully will have better pain control. No visual changes, denies chanes in strength to extremities. Did have a headache when she was up and amb but didnt have dizziness this time. Did work with PT and see their note. Cont w/poc.
[2019-06-24] MEDS: OXYCODONE IR 5 MG TABLET PO ×2 (14:51→21:22)
[2019-06-24 21:21] VITALS: BP 155/92; PULSE 62; RESP 18; TEMP 36.6; O2SAT 99
[2019-06-25] VITALS: BP 133/76; PULSE 56; RESP 16; TEMP 36.1; O2SAT 97
[2019-06-25] MEDS: LACTATED RINGERS 1,000 ML 125 ML IV (04:11)
[2019-06-25 05:57] VITALS: BP 128/77; PULSE 59; RESP 16; TEMP 36.1; O2SAT 99
[2019-06-25 07:13] VITALS: PULSE 66; O2SAT 99
[2019-06-25 08:00] VITALS: BP 144/98; PULSE 62; RESP 16; TEMP 37.1; O2SAT 98
[2019-06-25] MEDS: ACETAMINOPHEN 325 MG TABLET 650 MG PO (08:09)
--- NOTE | 2019-06-25 09:06 | DI.RAD.S_ITS ---
PROCEDURE: XR HUMERUS RT 2V INDICATIONS: swelling/deformity right upper arm post fall down stairs TECHNIQUE: A set of 2 views of the humerus were acquired. COMPARISON: None. FINDINGS: Bones: No fractures or dislocations. No suspicious bony lesions. Soft tissues: No suspicious soft tissue calcifications. IMPRESSION: No trauma found. Dictated by: Sampson Macias M.D. on 06/25/2019 at 10:12 Approved by: Sampson Macias M.D. on 06/25/2019 at 10:13
[2019-06-25] MEDS: OXYCODONE IR 5 MG TABLET PO (10:39)
--- NOTE | 2019-06-25 11:06 | PT.IPTN ---
Physical Therapy Treatment Note M2 PT-IP Current Condition Start: 06/24/19 11:05 Freq: NEEDED Status: Active Protocol: Document 06/24/19 13:59 AW (Rec: 06/24/19 14:44 AW [id number]) Physical Therapy Current Condition Current Condition Evaluation Date 06/24/19 Treatment Diagnosis concussion s/p fall down stairs, impaired mobility Onset Date 06/23/19 Precautions Other Precautions concussion Weight Bearing Status Weight Bearing Status Full Weight Bearing M3 PT-IP Subjective Start: 06/24/19 11:05 Freq: NEEDED Status: Active Protocol: Document 06/25/19 10:45 AW (Rec: 06/25/19 11:05 AW [id number]) Subjective Physical Therapy Visit Type Type Treatment Note Visit Start Time 10:21 Visit Stop Time 10:41 Total Visit Minutes 20 Number of ANALYTICS SENIOR MANAGER Visits 0 Physical Therapy Visit Comments Patient Comments Pt willing to work with therapy, has new complaints of right arm swelling/pain Therapy Pain Assessment Pain When Pain Assessed During Mobility Pain Present Pain Present Pain Reported Location right arm Scale Used increased with active abduction Pain Management Techniques Apply Cold Right Face Scale Used facial pain increased with increased light exposure Pain Behaviors Facial Grimacing,Wincing Pain Management Techniques Modification of Treatment M4 PT-IP Mobility and Gait Start: 06/24/19 11:05 Freq: NEEDED Status: Active Protocol: Document 06/25/19 10:45 AW (Rec: 06/25/19 11:05 AW [id number]) PT-Bed Mobility Assessment Supine to Sit Supine to Sit Independent Sit to Supine Sit to Supine Independent Scooting Scooting to Edge of Bed Independent PT-Transfer Assessment Sit to and From Stand Sit to and from Stand Independent Equipment Transfer Assistive Device None Transfers Transfer Destination Bed Transfer Technique pt ambulated without AD Transfer Ability Level of Assist Independent Comments Mobility Comments Pt independent for all mobility. Facial pain increased with increased light exposure in the halls. Gait Assessment Gait Gait Assistance Required: Independent Distance (Feet) 600 Able to Maintain Weight Bearing Status Yes During Gait Assistive Devices Assistive Device None Gait Deviations General Gait Pattern Decreased Stride Length Factors Limiting Gait Function Factors Limiting Gait Function Decreased Activity Tolerance, Pain Comments Gait Comments Pt ambulated 600 feet in the halls indepdendent. She performed head turns, nods, obstacle clearance, speed changed, and pivot turns without path deviation and without loss of balance. Stair Climbing Assessment Evaluation Level of Assist On Stairs Independent Devices Stair Climbing Assistive Devices None Technique/Endurance Stair Climbing Direction Ascend and Descend Stair Climbing Technique Step Over Step,Step to Step Number of Steps Climbed 3 Stair Climbing Set # Repetitions (reps) 2 Comments Stair Climbing Comments Pt ascended without railing independent using step over step pattern. She descended step-to independent due to chest wall pain. PT-Balance Assessment Sitting Balance and Reactions Static Sitting Balance Ability Normal Dynamic Sitting Balance Ability Normal Standing Balance and Reactions Static Standing Balance Ability Good Dynamic Standing Balance Ability Good Comments Other Balance Tests/Deviations/Treatment See gait description for : description of informal dynamic gait testing. Improved this session. M5 PT-IP Objective Assessments Start: 06/24/19 11:05 Freq: NEEDED Status: Active Protocol: Document 06/24/19 13:59 AW (Rec: 06/24/19 14:44 AW [id number]) Orientation Orientation/Cognition Level of Alertness Alert Orientation Name,Day of Week,Place, Situation Language Function Ability No Deficits Noted Safety Awareness Understands Safety Issues Memory Description No Deficits Noted Comments Pt is alert and not confused but clearly not at her baseline for mentation Gross Range of Motion Upper Extremity ROM Assessment Within Functional Limits Lower Extremity ROM Assessment Within Functional Limits Strength Upper Extremity Strength Assessment Bilaterally Impaired Shoulder abduction impaired 2/2 pain Lower Extremity Strength Assessment Within Functional Limits Comments Strength Comments BLE grossly 4+/5 Coordination Assessment Gross Coordination Gross Coordination Impaired Assessment Finger to Nose Test Minimal Impairment Pronation/Supination Test Normal Performance Heel on Gaytan Test Normal Performance Coordination Comments Pt exhibited signs of dysmetria with missed targets ~2 cm using R UE for finger to nose eyes closed and finger meir eyes open. Sensation Assessment Sensation Gross Sensation Right LE Impaired Light Touch Impaired Comments Sensation Comments Pt reports baseline numbness of 2nd right toe. Muscle Tone Muscle Tone WNL Yes Other Assessments Other Other Assessments Pt reports inability to fully open her jaw. On exam, she was not able to fit two finger widths vertically between upper and lower teeth. She notes that she had audible clicking prior to her fall, but the limited range of motion is new since the fall. M6 PT-IP Treatment Start: 06/24/19 11:05 Freq: NEEDED Status: Active Protocol: Document 06/25/19 10:45 AW (Rec: 06/25/19 11:05 AW [id number]) Physical Therapy Treatment Education Education Provided Precautions,Safety M7 PT-IP Assessment and Plan Start: 06/24/19 11:05 Freq: NEEDED Status: Active Protocol: Document 06/25/19 10:45 AW (Rec: 06/25/19 11:05 AW [id number]) PT Summary Assessment and Plan Potential Rehabilitation Potential Excellent Status of Condition at Evaluation Evolving Summary Impairments Pain,Strength,Coordination, Transfers,Gait,Activity Tolerance Progress Towards Goals Goals Met Assessment Summary Pt presents with improved alertness today and ability to keep both eyes open at all times. Oculomotor screen was negative with smooth pursuits and convergence, though abduction with right eye and convergence increased her facial pain. She presents with no resting or gaze-evoked nystagmus and denies dizziness . Her cervical range of motion is WNL and she is able to compensate for pain with ocular abduction. She did report light sensitivity which increased her facial pain with exposure to bright hallway light. She also complains of right arm swelling and pain which is new today. She has point tenderness with palpation of deltoid insertion as well as pain with active abduction. She continues to exhibit poor coordination with her right arm with impaired performance on finger to nose testing with eyes closed and with finger meir eyes open. No other coordination/neuro deficits noted. Pt improved her dynamic balance this session, was independent with all mobility. She has met the functional goals of this plan of care and will be safe to discharge once medically cleared. Goals Bed Mobility Goal Independent Transfer Goal Independent Gait Goal Independent Gait Distance 400 Other Goals - Pt will navigate up/down 3 steps without railing SBA - Pt will ambulate independent and perform pivot turns without loss of balance SBA Days to Meet Goals 0 Frequency of Treatment Frequency Of Treatment Discharge
--- NOTE | 2019-06-25 14:18 | PC.NURSE ---
Day shift: Pt left unit at approx 1410 to home via . Car driven by spouse and taken by VITA Chopra in . Paperwork signed and all questions answered. Pt has MD scrips and all personal belongings. Pt will make F/U appointments per our conversation..
== END 2019-06-25 14:19 | disposition home or self-care (01) ==
LOC: ED 23:24 → AC 23:27
PROVIDERS: Admitting Provider Specialist; Emergency Provider Emergency Medicine; Family Provider Family Medicine; PCP Family Medicine; Visit Provider Specialist
DX: S01.111A Laceration without foreign body of right eyelid and periocular area, initial encounter (principal); W10.9XXA Fall (on) (from) unspecified stairs and steps, initial encounter; S02.841A Fracture of lateral orbital wall, right side, initial encounter for closed fracture; S02.31XA Fracture of orbital floor, right side, initial encounter for closed fracture; S02.402A Zygomatic fracture, unspecified side, initial encounter for closed fracture; S02.40CA Maxillary fracture, right side, initial encounter for closed fracture; S06.0X9A Concussion with loss of consciousness of unspecified duration, initial encounter
CPT/HCPCS: 36415; 70450; 70486; 71045; 71260; 72125; 72170; 73060; 74177; 80053; 80320; 81003; 82550; 82553; 83690; 84484; 85025; 85610; 85730; 86850; 86900; 86901; 90471; 93005; 94762; 96361; 96374; 96375; 96376; 97116; 97162; 97530; 99219; 99284; 99285; G0378; 90715; J2270; J2405

== ENCOUNTER → 2019-07-10 10:02 | Outpatient (CLI) | payer OTHER, SELFPAY ==
[2019-06-24 00:53] VITALS: BMI 22.9
--- NOTE | 2019-07-10 | DI.MG.S_ITS ---
BILATERAL DIGITAL SCREENING MAMMOGRAM 3D/2D WITH CAD: 07/10/2019 CLINICAL: Routine screening. Family history of breast cancer. Comparison is made to exams dated: 06/01/2018 mammogram, 05/12/2017 mammogram, and 05/11/2016 mammogram - [facility]. The tissue of both breasts is heterogeneously dense. This may lower the sensitivity of mammography. Current study was also evaluated with a Computer Aided Detection (CAD) system. No significant masses, calcifications, or other findings are seen in either breast. There has been no significant interval change. IMPRESSION: NEGATIVE There is no mammographic evidence of malignancy. A 1 year screening mammogram is recommended. This exam was interpreted at Station ID: [id number]. NOTE: For mammograms, a report in lay terms will be sent to the patient. Approximately 15% of breast malignancies will not be visualized mammographically. In the management of a palpable breast mass, a negative mammogram must not discourage biopsy of a clinically suspicious lesion. Electronically Signed By: Suresh singh/karla:07/10/2019 14:19:43 letter sent: Normal Exam ACR BI-RADS Category 1: Negative 3341F
== END ==
PROVIDERS: PCP Family Medicine; Visit Provider Family Medicine
DX: Z12.31 Encounter for screening mammogram for malignant neoplasm of breast (principal); Z80.3 Family history of malignant neoplasm of breast
CPT/HCPCS: 77063; 77067

== ENCOUNTER → 2020-07-12 09:54 | Outpatient (CLI) | payer OTHER, SELFPAY ==
--- NOTE | 2020-07-12 09:56 | DI.MG.S_ITS ---
BILATERAL DIGITAL SCREENING MAMMOGRAM 3D/2D WITH CAD: 07/12/2020 CLINICAL: Routine screening. Family history of breast cancer. Comparison is made to exams dated: 07/10/2019 mammogram, 06/01/2018 mammogram, and 05/12/2017 mammogram - [facility]. The tissue of both breasts is heterogeneously dense. This may lower the sensitivity of mammography. Current study was also evaluated with a Computer Aided Detection (CAD) system. No significant masses, calcifications, or other findings are seen in either breast. There has been no significant interval change. IMPRESSION: NEGATIVE There is no mammographic evidence of malignancy. A 1 year screening mammogram is recommended. This exam was interpreted at Station ID: [id number]. NOTE: For mammograms, a report in lay terms will be sent to the patient. Approximately 15% of breast malignancies will not be visualized mammographically. In the management of a palpable breast mass, a negative mammogram must not discourage biopsy of a clinically suspicious lesion. Electronically Signed By: Mike garcia/karla:07/14/2020 10:42:33 letter sent: Normal Exam ACR BI-RADS Category 1: Negative 3341F
== END ==
PROVIDERS: PCP Family Medicine; Referring Provider Family Medicine; Visit Provider Family Medicine
DX: Z12.31 Encounter for screening mammogram for malignant neoplasm of breast (principal); Z80.3 Family history of malignant neoplasm of breast
CPT/HCPCS: 77063; 77067

== ENCOUNTER → 2021-07-20 16:47 | Outpatient (CLI) | payer OTHER, SELFPAY ==
--- NOTE | 2021-07-20 16:51 | DI.MG.S_ITS ---
BILATERAL DIGITAL SCREENING MAMMOGRAM 3D/2D WITH CAD: 07/20/2021 CLINICAL: Routine screening. Family history of breast cancer. Comparison is made to exams dated: 07/12/2020 mammogram, 07/10/2019 mammogram, and 06/01/2018 mammogram - [facility]. The tissue of both breasts is heterogeneously dense. This may lower the sensitivity of mammography. Current study was also evaluated with a Computer Aided Detection (CAD) system. No significant masses, calcifications, or other findings are seen in either breast. There has been no significant interval change. IMPRESSION: NEGATIVE There is no mammographic evidence of malignancy. A 1 year screening mammogram is recommended. This exam was interpreted at Station ID: [id number]. NOTE: For mammograms, a report in lay terms will be sent to the patient. Approximately 15% of breast malignancies will not be visualized mammographically. In the management of a palpable breast mass, a negative mammogram must not discourage biopsy of a clinically suspicious lesion. Electronically Signed By: Shruthi calvin/karla:07/21/2021 10:43:01 letter sent: Normal Exam ACR BI-RADS Category 1: Negative 3341F
== END ==
PROVIDERS: PCP Family Medicine; Referring Provider Family Medicine; Visit Provider Family Medicine
DX: Z12.31 Encounter for screening mammogram for malignant neoplasm of breast (principal); Z80.3 Family history of malignant neoplasm of breast
CPT/HCPCS: 77063; 77067

== ENCOUNTER → 2021-08-12 12:42 | Outpatient (CLI) | payer OTHER, SELFPAY ==
--- NOTE | 2021-08-12 12:45 | DI.MRI.S_ITS ---
PROCEDURE: MR KNEE LT WO CON INDICATIONS: Pain in left knee TECHNIQUE: Noncontrast sagittal PD fast spin echo and T2 fast spin echo with fat saturation, sagittal 3-D FLASH with fat saturation; coronal T1 spin echo and PD fast spin echo with fat saturation, and axial PD fast spin echo with fat saturation through the knee. COMPARISON: [facility], MR, KNEE WITHOUT CONTRAST, 09/20/2014, 7:59. FINDINGS: Image quality: Excellent. Menisci: There is suggestion of a focal vertical tear involving posterior horn of medial meniscus extending to both superior and inferior articulating surfaces. Peripheral displacement of medial meniscus bowing medial collateral ligament is seen. There is no evidence of focal lateral meniscal tear. The meniscal root ligaments appear intact. Cruciate ligaments: Slightly attenuated appearance of anterior cruciate ligament is seen suggestive of sprain/low-grade intrasubstance partial-thickness tear. No full-thickness ACL rupture. PCL is intact. Medial structures: Low-grade medial collateral ligament sprain is seen. The posterior oblique ligament, semimembranosus tendon insertions, oblique popliteal ligament, and meniscocapsular junction appear intact. Visualized portions of the pes anserinus tendons appear normal. No abnormal bursal fluid. Lateral structures: The lateral collateral ligament, long and short heads of the biceps femoris tendon appear intact. The popliteus tendon appears normal; the popliteofibular ligament appears intact. The posterosuperior and anteroinferior popliteomeniscal fascicles appear intact. The arcuate and fabellofibular ligaments appear intact, on either side of the lateral inferior geniculate artery. Iliotibial band appears normal. Anterior structures: Mild distal quadriceps tendinosis at its superior patellar insertion is seen. Mild proximal patellar tendinosis at its inferior patellar insertion is also noted. No full-thickness tendon rupture. Patellar alignment is normal. No femoral trochlear dysplasia or ventral trochlear prominence. No edema in the infrapatellar fat pad. Bones and cartilage: There is significant marrow edema involving proximal tibia extending to both medial and lateral tibial plateau with subtle linear hypointense signal involving lateral tibial plateau extending to anterior cortex concerning for a subtle non depressed fracture in this area. No other area of abnormal marrow signal is seen. Moderate tricompartmental osteoarthritis and chondromalacia is noted.. The cartilage of the medial and lateral femorotibial compartments, as well as the patellofemoral compartment, appears normal in thickness. Joint space: There is small amount of joint fluid. No Denson's cyst. Normal appearing synovial plicae are incidentally noted. IMPRESSION: 1. Extensive marrow edema involving proximal tibial shaft with subtle linear hypointense signal involving lateral tibial plateau with cortical irregularity concerning for a subtle nondisplaced fracture in this area. No other fracture or dislocation. Moderate tricompartmental osteoarthritis and small joint effusion. 2. Suggestion of focal vertical tear involving posterior horn of medial meniscus extending to both superior and inferior articulating surfaces. No evidence of focal lateral meniscal tear. 3. Suggestion of sprain/low-grade intrasubstance partial-thickness tear involving anterior cruciate ligament. No full-thickness ACL rupture. PCL is intact. Low-grade MCL sprain. 4. Distal quadriceps and proximal patellar tendinosis at their patellar insertions. No full-thickness tendon rupture. Dictated by: Marco A Garay M.D. on 08/12/2021 at 13:58 Approved by: Marco A Garay M.D. on 08/12/2021 at 15:44
== END ==
PROVIDERS: PCP Family Medicine; Referring Provider Orthopaedic Surgery; Visit Provider Orthopaedic Surgery
DX: S83.412A Sprain of medial collateral ligament of left knee, initial encounter (principal); M25.562 Pain in left knee; M17.12 Unilateral primary osteoarthritis, left knee; M25.462 Effusion, left knee
CPT/HCPCS: 73721

== ENCOUNTER → 2021-12-09 16:08 | Outpatient (CLI) | payer OTHER, SELFPAY ==
--- NOTE | 2021-12-09 16:13 | DI.RAD.S_ITS ---
PROCEDURE: XR HIP W PEL IF DONE RT 2V INDICATIONS: rt hip pain TECHNIQUE: AP pelvis with lateral view(s) of the right hip(s). COMPARISON: [facility], CR, XR LUMBAR SPINE 2-3V, 12/09/2021, 16:04. FINDINGS: Bones: No fractures or dislocations. Pelvic ring appears intact. No suspicious bony lesions. There is mild bilateral hip joint space narrowing. No osteophytosis. Soft tissues: The visualized bowel gas pattern is normal. No suspicious soft tissue calcifications. IMPRESSION: Mild bilateral hip joint space narrowing consistent with mild osteoarthritis. Dictated by: Cyn Bahtti M.D. on 12/09/2021 at 17:19 Approved by: Cyn Bhatti M.D. on 12/09/2021 at 17:20
--- NOTE | 2021-12-09 16:13 | DI.RAD.S_ITS ---
PROCEDURE: XR LUMBAR SPINE 2-3V INDICATIONS: rt hip pain TECHNIQUE: 3 views of the lumbar spine were acquired. COMPARISON: [facility], , L-SPINE 2-3 VIEWS, 06/21/2012, 16:46. FINDINGS: Bones: 5 [id number] vertebrae are present. There is normal bony alignment. No vertebral body compression fractures. No suspicious bony lesions. Mild anterior osteophytosis is present throughout the lumbar spine. These findings are unchanged in extent when compared with the study dated June 21, 2012. Soft tissues: Overlying bowel gas pattern is normal. No suspicious soft tissue calcifications. IMPRESSION: Stable, mild degenerative changes of the lumbar spine. Dictated by: Cyn Bhatti M.D. on 12/09/2021 at 17:16 Approved by: Cyn Bhatti M.D. on 12/09/2021 at 17:18
== END ==
PROVIDERS: PCP Family Medicine; Referring Provider Family Medicine; Visit Provider Family Medicine
DX: M25.551 Pain in right hip (principal); M47.816 Spondylosis without myelopathy or radiculopathy, lumbar region
CPT/HCPCS: 72100; 73502

== ENCOUNTER → 2022-01-27 15:17 | Outpatient (CLI) | payer OTHER, SELFPAY | PROVIDERS: PCP Family Medicine; Referring Provider Family Medicine; Visit Provider Family Medicine | DX: Z78.0 Asymptomatic menopausal state (principal); M84.30XA Stress fracture, unspecified site, initial encounter for fracture; M85.89 Other specified disorders of bone density and structure, multiple sites | CPT/HCPCS: 77080 ==

== ENCOUNTER → 2022-07-21 07:34 | Outpatient (CLI) | payer OTHER, SELFPAY ==
--- NOTE | 2022-07-21 | DI.MG.S_ITS ---
BILATERAL DIGITAL SCREENING MAMMOGRAM 3D/2D WITH CAD: 07/21/2022 CLINICAL: Routine screening. Family history of breast cancer. Comparison is made to exams dated: 07/20/2021 mammogram, 07/12/2020 mammogram, and 07/10/2019 mammogram - [facility]. Both breasts are heterogeneously dense, which may obscure small masses (category c / 51-75% glandular tissue). Current study was also evaluated with a Computer Aided Detection (CAD) system. No significant masses, calcifications, or other findings are seen in either breast. There has been no significant interval change. IMPRESSION: NEGATIVE There is no mammographic evidence of malignancy. A 1 year screening mammogram is recommended. This exam was interpreted at Station ID: [id number]. NOTE: For mammograms, a report in lay terms will be sent to the patient. Approximately 15% of breast malignancies will not be visualized mammographically. In the management of a palpable breast mass, a negative mammogram must not discourage biopsy of a clinically suspicious lesion. Electronically Signed By: Gregorio thomas/karla:07/21/2022 08:58:35 letter sent: Normal Exam ACR BI-RADS Category 1: Negative 3341F
== END ==
PROVIDERS: PCP Family Medicine; Referring Provider Family Medicine; Visit Provider Family Medicine
DX: Z12.31 Encounter for screening mammogram for malignant neoplasm of breast (principal); Z80.3 Family history of malignant neoplasm of breast
CPT/HCPCS: 77063; 77067

== ENCOUNTER → 2023-01-04 18:52 | Outpatient (CLI) | payer OTHER, SELFPAY ==
--- NOTE | 2023-01-04 | DI.MRI.S_ITS ---
PROCEDURE: MR HIP RT WO CON INDICATIONS: CHRONIC RT SIDED LOW BACK PAIN WITH RT SCIATICA TECHNIQUE: Noncontrast coronal T1 spin echo and STIR through the bony pelvis. Coronal and axial T2 fast spin echo with fat saturation, sagittal T1 spin echo, and oblique axial T2 fast spin echo with fat saturation through the hip. COMPARISON: None. FINDINGS: Image quality: Excellent. Bones and joints: Bone marrow of the pelvic ring and proximal femurs show normal signal throughout. No intraosseous lesions or fractures. No avascular necrosis of the femoral heads. The visualized lower lumbar spine appears normally aligned. Tendons and ligaments: The gluteus medius and minimus tendons appear intact, without associated muscle atrophy. There is mild T2 signal elevation adjacent to the femoral insertions of the right gluteus medius and minimus tendons. The nearby proximal iliotibial band also appears intact. The iliopsoas tendon appears intact, without adjacent bursal fluid collections or evidence for impingement syndrome. The origin of the hamstring tendon is intact at the ischial tuberosity, as well as the associated sacrotuberous ligament. Mild T2 signal elevation surrounds the proximal hamstring tendon. The straight and reflected heads of the rectus femoris muscle origin appear intact, as well as the conjoint tendon. The ligamentum teres appears intact where visualized. Labrum and cartilage: There is high T2 signal intensity within the superolateral labrum. Cartilage surface of the femoral head appears of normal thickness. The alpha angle of the femur is within normal limits at less than 55 degrees. Soft tissues: Visualized muscles demonstrate normal bulk and internal signal. Quadratus femoris muscle demonstrates no internal edema to suggest ischiofemoral impingement. The proximal sciatic neurovascular bundle appears normal adjacent to the hamstring tendons. No free pelvic fluid. Bladder wall thickness is normal. Genitourinary structures and bowel loops appear normal where visualized. IMPRESSION: 1. Insertional tendinitis of the right gluteus medius and minimus tendons. 2. Mild right hamstring tendinopathy. 3. Right hip labral tearing. Dictated by: eCcy Saleh M.D. on 01/05/2023 at 8:44 Approved by: Cecy Saleh M.D. on 01/05/2023 at 8:46
--- NOTE | 2023-01-04 | DI.MRI.S_ITS ---
PROCEDURE: MR LUMBAR SPINE WO CON INDICATIONS: CHRONIC RT SIDED LOW BACK PAIN WITH RT SCIATICA TECHNIQUE: Noncontrast sagittal T1 spin echo and T2 fast echo, sagittal STIR, and T2 fast spin echo through the lumbar spine. In cases with scoliosis, additional coronal T2 fast spin echo may be performed. COMPARISON: CR, XR LUMBAR SPINE 2-3V, 12/09/2021, 16:04. FINDINGS: Image quality: Excellent. Alignment and Curvature: There is trace retrolisthesis of L4 on L5, L5 on S1. Mild rightward scoliotic curvature is present with apex at L3-4. Bone Marrow: Marrow is of normal overall signal. Mild reactive endplate changes are present at L5-S1. No acute vertebral body compression fractures. Spinal Cord: Conus medullaris terminates at the L1 level. Visualized cord demonstrates normal signal and size. Paraspinous Soft Tissues: No paravertebral masses. Discs: Multilevel moderate to severe disc desiccation is present most significant at L5-S1. T12-L1: Minimal disc bulge without spinal stenosis or foraminal narrowing. L1-L2: No disc bulge, spinal stenosis or foraminal narrowing. L2-L3: Minimal disc bulge without spinal stenosis or foraminal narrowing. L3-L4: Mild disc bulge including a left foraminal component. Minimal canal narrowing. No foraminal narrowing. Facet and ligamentum flavum hypertrophy are present. Minimal epidural lipomatosis. L4-L5: Mild disc bulge including minimal canal narrowing. Moderate bilateral foraminal narrowing, left greater than right with facet and ligamentum flavum hypertrophy. L5-S1: Mild disc bulge including a right proximal foraminal/lateral recess component. Mild left and severe right foraminal narrowing with slight effacement of the exiting right L5 nerve root. Facet hypertrophy is present. IMPRESSION: Multilevel disc bulges. Multilevel foraminal narrowing most severe at L5-S1 secondary to disc bulge with contributing effect of facet/ligamentum flavum arthropathy. Dictated by: Jazmín Frank M.D. on 01/05/2023 at 11:31 Approved by: Jazmín Frank M.D. on 01/05/2023 at 11:36
== END ==
PROVIDERS: PCP Family Medicine; Referring Provider Family Medicine; Visit Provider Family Medicine
DX: M76.01 Gluteal tendinitis, right hip (principal); S73.101A Unspecified sprain of right hip, initial encounter; M25.551 Pain in right hip; M51.17 Intervertebral disc disorders with radiculopathy, lumbosacral region; M51.16 Intervertebral disc disorders with radiculopathy, lumbar region; M48.07 Spinal stenosis, lumbosacral region; M48.061 Spinal stenosis, lumbar region without neurogenic claudication; M47.27 Other spondylosis with radiculopathy, lumbosacral region; M47.26 Other spondylosis with radiculopathy, lumbar region
CPT/HCPCS: 72148; 73721

== ENCOUNTER → 2023-06-06 11:59 | Outpatient (CLI) | payer OTHER, SELFPAY ==
--- NOTE | 2023-06-06 | DI.MG.S_ITS ---
BILATERAL DIGITAL DIAGNOSTIC MAMMOGRAM 3D/2D: 06/06/2023 CLINICAL: Left breast skin change/bump. Comparison is made to exams dated: 07/21/2022 mammogram, 07/20/2021 mammogram, and 07/12/2020 mammogram - . Both breasts are heterogeneously dense, which may obscure small masses (category c / 51-75% glandular tissue). No significant masses, calcifications, or other findings are seen in either breast. IMPRESSION: INCOMPLETE: NEEDS ADDITIONAL IMAGING EVALUATION There is no abnormality seen in the left breast to correspond with the skin lesion, however, ultrasound is recommended. Based on the Tyrer Cuzick model (a risk assessment model) the patient's lifetime risk is 19.2% and her 10 year risk is 8.0%. According to the ACR, ACS, and NCCN guidelines, an annual breast MRI exam along with mammogram is recommended if the patient's lifetime risk is 20% or greater. This exam was interpreted at Station ID: [id number]. NOTE: For mammograms, a report in lay terms will be sent to the patient. Approximately 15% of breast malignancies will not be visualized mammographically. In the management of a palpable breast mass, a negative mammogram must not discourage biopsy of a clinically suspicious lesion. Electronically Signed By: Gregorio Vazquez M.D. lc/:06/06/2023 13:26:20 ACR BI-RADS Category 0: Incomplete 3340F
--- NOTE | 2023-06-06 | DI.US.S_ITS ---
LIMITED ULTRASOUND OF LEFT BREAST: 06/06/2023 CLINICAL: Patient returns today to evaluate a focal asymmetry in the left breast. Comparison is made to exams dated: 06/06/2023 mammogram, 07/21/2022 mammogram, 07/20/2021 mammogram, 07/12/2020 mammogram, 07/10/2019 mammogram, and 06/01/2018 mammogram - [facility]. Real-time ultrasound of the left breast 7 o'clock region was performed. Daniel scale images of the real-time examination were reviewed. No significant abnormalities were seen sonographically in the left breast. IMPRESSION: NEGATIVE There is no sonographic evidence of malignancy. There is no abnormality seen in the left breast to correspond with the skin lesion at 7 o'clock, however, clinical correlation and clinical followup are recommended. Return to annual mammogram screening schedule is recommended. This exam was interpreted at Station ID: [id number]. Electronically Signed By: Gregorio Vazquez M.D. lc/:06/06/2023 13:27:44 letter sent: Clinical Evaluation Ultrasound BI-RADS: 1 Negative
== END ==
PROVIDERS: PCP Family Medicine; Referring Provider Family Medicine; Visit Provider Family Medicine
DX: N64.4 Mastodynia (principal); R92.2 Inconclusive mammogram
CPT/HCPCS: 76642; 77066; G0279

== ENCOUNTER → 2023-07-07 | Outpatient (CLI) | payer OTHER, SELFPAY ==
--- NOTE | 2023-07-07 | DI.RAD.S_ITS ---
Bone Density Report Name: TERESA BANSAL Age: 62 Sex: Female Ethnicity: White Date of : 1960 Indication: osteopenia; prior fracture; Referring Provider: CHERIE PHAM Study: Bone densitometry was performed. Exam Date: July 07, 2023 Accession number: [id number] Bone Density: Region BMD T-score Z-score Classification AP Spine(L1-L4) 0.949 -0.9 0.6 Normal Femoral Neck (Left) 0.599 -2.3 -0.9 Osteopenia Total Hip (Left) 0.705 -1.9 -1.0 Osteopenia Femoral Neck (Right) 0.729 -1.1 0.2 Osteopenia Total Hip (Right) 0.747 -1.6 -0.6 Osteopenia Total Hip Mean 0.726 -1.8 -0.8 Osteopenia World Health Organization criteria for BMD impression classify patients as: Normal (T-score at or above -1.0), Osteopenia (T-score between -1.0 and -2.5), or Osteoporosis (T-score at or below -2.5). 10-year Fracture Risk(1): Major Osteoporotic Fracture 16% Hip Fracture 2.8% Reported Risk Factors: [place] (), Neck BMD=0.599, BMI=21.3, previous fracture (1) FRAX(R) Version 3.08. Fracture probability calculated for an untreated patient. Fracture probability may be lower if the patient has received treatment. Previous Exams: -- Region Exam Age BMD T-score BMD Change BMD Change Date g/cm2 vs Baseline vs Previous -- AP Spine (L1-L4) 07/07/2023 62 0.949 -0.9 -0.003 (-0.3%) -0.003 (-0.3%) 01/27/2022 61 0.952 -0.9 Total Hip(Left) 07/07/2023 62 0.705 -1.9 -0.085 (-10.7%)* -0.085 (-10.7%)* 01/27/2022 61 0.790 -1.2 Total Hip(Right) 07/07/2023 62 0.747 -1.6 -0.009 (-1.2%) -0.009 (-1.2%) 01/27/2022 61 0.757 -1.5 -- *Denotes significance at 95% confidence level, LSC for AP Spine = 0.022 g/cm2, LSC for Total Hip = 0.027 g/cm2 Impression: The patient has low bone mass, based on the Left Femoral Neck T-score. The patient has an estimated ten-year risk of hip fracture of 2.8% and an estimated ten-year risk of major fracture of 16%, based on the WHO FRAX algorithm. The patient has risk factors, including: previous fracture. The BMD for the Total Hip(Left) decreased, changing by -10.7% since the last DXA exam. Discussion: BONE DENSITY IS LOW AT ONE OR MORE SKELETAL SITES. This patient's lowest T-score is low at one or more skeletal sites. It meets the World Health Organization's (WHO) criteria for low bone mass (T-score between -1.0 and -2.5). The patient's 10-year risk of fracture as calculated by FRAX is less than the threshold where pharmacological therapy is recommended by the National Osteoporosis Foundation (NOF). However, all treatment decisions require clinical judgment and consideration of individual patient factors, including patient preferences, comorbidities, previous drug use, risk factors not captured in the FRAX model (e.g., frailty, falls, vitamin D deficiency, increased bone turnover, interval significant decline in bone density) and possible under or overestimation of fracture risk by FRAX. The patient should follow a healthful lifestyle (good nutrition with adequate calcium and vitamin D, and appropriate weight-bearing exercise). Follow-Up: Consider repeating this study in 2 years to reassess this patient's status, or sooner if there is some new clinical indication. Reported by: MIKE TREJO M.D. on 07/07/2023 10:09:00 AM.
== END ==
LOC: RAD 09:45
PROVIDERS: PCP Family Medicine; Referring Provider Family Medicine; Visit Provider Family Medicine
DX: M85.852 Other specified disorders of bone density and structure, left thigh (principal); M84.362D Stress fracture, left tibia, subsequent encounter for fracture with routine healing; M85.851 Other specified disorders of bone density and structure, right thigh
CPT/HCPCS: 77080

== ENCOUNTER → 2024-04-12 09:17 | Outpatient (CLI) | payer OTHER, SELFPAY ==
--- NOTE | 2024-04-12 09:18 | DI.RAD.S_ITS ---
PROCEDURE: XR SHOULDER LT MIN 2V INDICATIONS: Left shoulder pain TECHNIQUE: 3 views of the shoulder were acquired. COMPARISON: None. FINDINGS: Bones: No fractures or dislocations. Mild acromioclavicular joint space narrowing and juxta-articular osteophytosis. No suspicious bony lesions. Visualized ribs appear intact. Soft tissues: No suspicious soft tissue calcifications. IMPRESSION: 1. No acute bony abnormality. 2. Mild acromioclavicular joint osteoarthritis. Dictated by: Kyaw Lee M.D. on 04/12/2024 at 15:17 Approved by: Kyaw Lee M.D. on 04/12/2024 at 15:35
== END ==
PROVIDERS: PCP Family Medicine; Referring Provider Family Medicine; Visit Provider Family Medicine
DX: M19.012 Primary osteoarthritis, left shoulder (principal); M25.512 Pain in left shoulder
CPT/HCPCS: 73030

== ENCOUNTER → 2024-04-20 08:36 | Outpatient (CLI) | payer OTHER, SELFPAY ==
--- NOTE | 2024-04-20 08:37 | DI.RAD.S_ITS ---
PROCEDURE: XR THORACIC SPINE 3V INDICATIONS: RIB PAIN TECHNIQUE: AP and lateral views of the thoracic spine were acquired. COMPARISON: [facility], CT, CT CERVICAL SPINE WO CON, 06/23/2019, 20:25. FINDINGS: Likely projectional artifact rather than a mildly displaced fracture of the T1 spinous process, best identified on the lateral view. The thoracic vertebral body heights are preserved. The intervertebral disc heights are preserved. No acute, displaced rib fractures in the field of view. IMPRESSION: 1. Likely projectional artifact versus displaced fracture at the T1 spinous process. Please correlate for point tenderness. 2. Otherwise, no acute radiographic abnormality of the thoracic spine. Dictated by: Anselmo Avila M.D. on 04/20/2024 at 8:54 Approved by: Anselmo Avila M.D. on 04/20/2024 at 8:58
== END ==
PROVIDERS: PCP Family Medicine; Referring Provider Physical Medicine & Rehabilitation; Visit Provider Physical Medicine & Rehabilitation
DX: R07.81 Pleurodynia (principal)
CPT/HCPCS: 72072

== ENCOUNTER → 2024-06-07 07:58 | Outpatient (CLI) | payer OTHER, SELFPAY ==
--- NOTE | 2024-06-07 07:59 | DI.MG.S_ITS ---
BILATERAL DIGITAL SCREENING MAMMOGRAM 3D/2D WITH CAD: 06/07/2024 CLINICAL: Routine screening. Family history of breast cancer. Comparison is made to exams dated: 06/06/2023 mammogram, 07/21/2022 mammogram, 07/20/2021 mammogram, 07/12/2020 mammogram, 07/10/2019 mammogram, and 06/01/2018 mammogram - [facility]. The breasts are heterogeneously dense, which may obscure small masses (category c / 51-75% glandular tissue). Current study was also evaluated with a Computer Aided Detection (CAD) system. No significant masses, calcifications, or other findings are seen in either breast. There has been no significant interval change. IMPRESSION: NEGATIVE There is no mammographic evidence of malignancy. A 1 year screening mammogram is recommended. Based on the Tyrer Cuzick model (a risk assessment model) the patient's lifetime risk is 18.8% and her 10 year risk is 8.1%. According to the ACR, ACS, and NCCN guidelines, an annual breast MRI exam along with mammogram is recommended if the patient's lifetime risk is 20% or greater. This exam was interpreted at Station ID: [id number]. NOTE: For mammograms, a report in lay terms will be sent to the patient. Approximately 15% of breast malignancies will not be visualized mammographically. In the management of a palpable breast mass, a negative mammogram must not discourage biopsy of a clinically suspicious lesion. Electronically Signed By: Sita Celaya M.D., Ph.D. maria alejandra/karla:06/07/2024 14:20:06 letter sent: Normal Exam ACR BI-RADS Category 1: Negative
== END ==
PROVIDERS: PCP Family Medicine; Referring Provider Family Medicine; Visit Provider Family Medicine
DX: Z12.31 Encounter for screening mammogram for malignant neoplasm of breast (principal); Z80.3 Family history of malignant neoplasm of breast; R92.333 Mammographic heterogeneous density, bilateral breasts
CPT/HCPCS: 77063; 77067

== ENCOUNTER 2024-06-12 09:46 | Outpatient (CLI) | payer OTHER, SELFPAY ==
[2024-06-12] VITALS (8 sets, daily range): BP systolic 112–162; BP diastolic 67–81; PULSE 53–62; RESP 10–20; TEMP 36.3; O2SAT 99–100
--- NOTE | 2024-06-12 09:47 | DI.RAD.S_ITS ---
PROCEDURE: PAIN L/S TRANSFORAMINAL INJECT INDICATIONS: Right L5/S1 TFESI COMPARISON: None. FINDINGS: Fluoroscopic spot filming was performed to verify placement of spinal needles at the L5-S1 on the right level(s), as labeled on the films. Appropriate location(s) of the needle tip(s) was confirmed by injection of iodinated contrast. IMPRESSION: Right L5-S1 transforaminal injection, see procedure note full details. Dictated by: Gregorio Vazquez M.D. on 06/12/2024 at 20:32 Approved by: Gregorio Vazquez M.D. on 06/12/2024 at 20:32
[2024-06-12] MEDS: MIDAZOLAM 2 MG/2 ML VIAL IV (11:12)
[2024-06-12] MEDS: iopamidoL 15 ML VIAL 3 ML INJ (11:18)
[2024-06-12] MEDS: DEXAMETHASONE 10 MG/ML VIAL INJ (11:18)
[2024-06-12] MEDS: BUPIVACAINE 0.25% (PF) VIAL 2 ML INJ (11:18)
[2024-06-12] MEDS: BETAMETHASONE 30 MG/5 ML MDV 12 MG INJ (11:18)
--- NOTE | 2024-06-12 11:33 | P.PCN_ITS ---
Date/Time/Diagnoses Date of procedure: 06/12/24 Time of procedure: 11:34 Pre-procedure diagnosis: FORAMINAL STENOSIS WITH LE SYMPTOMS Post-procedure diagnosis: same Procedure Notes Procedure: 1. FLUOROSCOPICALLY GUIDED CONTRAST CONTROLLED TRANSFORAMINAL EPIDURAL STEROID INJECTION - RIGHT L5/S1 TFESI Indications: Zenaida is referred by Dr. Ngo for treatment of Foraminal Stenosis with Right LE Symptoms Physician: Luis Miguel Boateng Total Fluoroscopy time (seconds): 18 Total sedation minutes: 15 Complications: none Procedure in detail & Post-procedure care: FINDINGS Foraminal Nerve Root Compression secondary to disc disease and facet hypertrophy DESCRIPTION OF PROCEDURE Following review of allergy and review of potential side effects and complications, including, but not necessarily limited to, infection, allergic re action, local tissue breakdown, stroke, temporary or permanent nerve injury, paralysis, and possible , the patient indicated that the patient understood and agreed to proceed. An informed consent document was signed by the patient, witnessed by a nurse, and placed in the patient's chart. Additionally, other treatment options including medications, modalities, and physical therapy were reviewed with the patient. After review of previous anaesthesic history and IV conscious sedation the patient was deemed safe to proceed with today?s procedure with IV conscious sedation as ASA class II designation. Safety time-out was performed to confirm patient ID, procedure to be performed and site of procedure. IV sedation was accomplished with a combination of 2mg of Versed was administered by the RN after DO order, titrated to patient comfort during the course of the procedure while the patient remained responsive to all verbal commands In the prone position following sterile prep and drape of the lumbar region, the right L5/S1 posterior neuroforamen was identified fluoroscopically. The skin was anesthetized via a 25-gauge 1.5-inch needle with 1% lidocaine solution. At this point, a 25-gauge 3.5-inch spinal needle was atraumatically introduced and advanced under fluoroscopic guidance through the posterior right L5/S1 neuroforamen to approximately the anterior aspect of the canal. Depth was confirmed on lateral view. Following negative aspiration, injection of approximately 1.5cc of Isovue 200 under live fluoroscopy in the AP view confirmed excellent flow along the nerve root, into the epidural space without vascular or intrathecal uptake observed Radiological data, including multiple fluoroscopic views of the lumbosacral spine, reveal a spinal needle at the right L5/S1 posterior neuroforamen. Subsequent views show flow of contrast material flowing superiorly and inferiorly along the nerve root confirming epidural flow. Subsequently, a test dose of 1.5 cc of 1% lidocaine solution was administered and patient was observed for two minutes for signs or symptoms of complications, including abdominal pain, shortness of breath, bilateral upper or lower extrem ity weakness, nausea and vomiting, prior to steroid injection. At this point, a total of 2cc or 10mg of dexamethasone and 6mg of betamethasone was injected without incident. The procedure tolerated the procedure well without signs or symptoms of complications prior to transfer to the recovery area continued monitoring without incident. The patient was then transferred to the recovery area where they were observed for an appropriate time after the injection. The patient reported a VAS score of 7 prior to the procedure and a post- procedure VAS of 0. POST OP INSTRUCTIONS The patient was provided a Pain Log to continue to record their response to the target-specific procedure prior to follow-up visit with their referring physician. Additionally, specific post-injection care instructions and a contact number to our office were provided if concerns arise regarding possible complications associated with the procedure are suspected.
== END 2024-06-12 11:55 | disposition home or self-care (01) ==
LOC: RAD 09:47
PROVIDERS: PCP Family Medicine; Referring Provider Physical Medicine & Rehabilitation; Visit Provider Physical Medicine & Rehabilitation
DX: M48.07 Spinal stenosis, lumbosacral region (principal); M51.17 Intervertebral disc disorders with radiculopathy, lumbosacral region; M47.27 Other spondylosis with radiculopathy, lumbosacral region
CPT/HCPCS: 64483; 99152; J0702; J1100; J2250; J3490

== ENCOUNTER → 2024-06-13 10:34 | Outpatient (CLI) | payer OTHER, SELFPAY ==
[2024-06-13 11:07] LABS: Add Manual Diff / Slide Review NO; Basophils Absolute Auto 0 /uL (0-100); Basophils Percent Auto 0.1 % (0-2); Eosinophils Absolute Auto 0 /uL (0-450); Hematocrit 41.4 % (36-46); Hemoglobin 14.2 g/dL (12.0-16.0); Lymphocytes Absolute Auto 1000 /uL (1100-4500); Lymphocytes Percent Auto 9.1 % (25-40); Mean Corpuscular HGB Conc 34.3 % (30-36); Mean Corpuscular Hemoglobin 32.4 PG (26-34); Mean Corpuscular Volume 94.5 fL (80-100); Monocytes Absolute Auto 600 /uL (0-900); Monocytes Percent Auto 5.4 % (3-14); Neutrophils Absolute Auto 9800 /uL (1500-7000); Neutrophils Percent Auto 85.4 % (50-75); Platelet Count 260 X10^3/uL (150-400); Red Blood Cell Count 4.37 X10^6/uL (4.0-5.2); Red Cell Distribution Width 13.3 % (11.6-14.8); White Blood Cell Count 11.4 X10^3/uL (4.5-11.0)
[2024-06-13 11:58] LABS: Alanine Aminotransferase 31 IU/L (<35); Albumin 4.5 g/dL (3.5-5.0); Albumin Globulin Ratio 1.9 (1.0-2.8); Alkaline Phosphatase 80 U/L (38-126); Aspartate Aminotransferase 38 IU/L (14-36); BUN Creatinine Ratio 28.9 (6-22); Bilirubin Total 0.5 mg/dL (0.2-1.3); Blood Urea Nitrogen 22 mg/dL (7-17); Calcium 10.2 mg/dL (8.4-10.2); Carbon Dioxide 25 mmol/L (22-32); Chloride 101 mmol/L (98-107); Cholesterol 211 mg/dL (140-199); Estimated Glomerular Filt Rate > 60 mL/min (>60); Globulin 2.4 g/dL (1.7-4.1); Glucose 115 mg/dL (80-110); HEMOLYSIS < 15 (0-50); Potassium 4.2 mmol/L (3.4-5.1); Sodium 135 mmol/L (137-145); Total Protein 6.9 g/dL (6.3-8.2); Triglycerides 72 mg/dL (35-150)
[2024-06-13 12:06] LABS: HDL Cholesterol 117 mg/dL (40-60); LDL Cholesterol Calculated 80 mg/dL (<100)
== END ==
PROVIDERS: PCP Family Medicine; Referring Provider Family Medicine; Visit Provider Family Medicine
DX: Z13.6 Encounter for screening for cardiovascular disorders (principal)
CPT/HCPCS: 36415; 80053; 80061; 85025

== ENCOUNTER 2024-07-16 09:24 | Day surgery (SDC) | payer OTHER, SELFPAY ==
[2024-07-16 10:33] VITALS: BP 119/77; PULSE 70; RESP 17; TEMP 36.6; O2SAT 96
--- NOTE | 2024-07-16 11:11 | PM.HP.1 ---
History of Present Illness History of Present Illness Date Patient Seen: 07/16/24 Time Patient Seen: 11:12 Chief complaint: Colonoscopy w/poss bx Narrative: 63-year-old female here for colonoscopy. She reports a personal history of colon polyps. [facility] Medical History Lumbar radiculopathy Surgical History History of appendectomy Social History household members: spouse Smoking Status: Never smoker alcohol intake: current Meds Home Medications and Allergies Home Medications Medication Instructions Recorded Confirmed Type Lactobacillus acidophilus 1 tab PO QDAY ##0 05/31/16 06/12/24 History ascorbic acid (vitamin C) 500 mg 500 mg PO QDAY ##0 05/31/16 06/12/24 History tablet magnesium citrate 100 mg tablet 100 mg PO QDAY ##0 05/31/16 06/12/24 History multivitamin (Multiple Vitamins 1 tab PO QDAY ##0 05/31/16 06/12/24 History tablet) vitamin B complex (B 1 tab PO QDAY ##0 05/31/16 06/12/24 History Complex-Vitamin B12 tablet) glucosamine HCl 500 mg tablet 500 mg PO DAILY 04/12/24 06/12/24 History meloxicam 15 mg tablet 15 mg PO DAILY #30 tabs 04/23/24 07/16/24 Rx gabapentin 600 mg tablet 600 mg PO TID #90 tabs 05/15/24 07/16/24 Rx Allergies Allergy/AdvReac Type Severity Reaction Status Date / Time Sulfa (Sulfonamide Allergy Unknown Verified 07/16/24 10:39 Antibiotics) [SULFA (SULFONAMIDE ANTIBIOTICS)] Review of Systems Review of Systems ROS: Yes All systems reviewed with the patient and are negative except as otherwise documented Exam Vital Signs (past 8 hours): - 07/16/24 10:33 Temperature 98 F Pulse Rate 70 Respiratory Rate 17 Blood Pressure 119/77 Pulse Oximetry 96 Oxygen Delivery Method Room Air Oxygen Delivery Method Room Air Const General: cooperative HENMT Head: normal to inspection Eyes General: appearance normal, both eyes and all related structures Neck Neck: normal visual inspection Chest Chest: normal inspection of the chest Resp Effort & Inspection: normal respiratory effort Cardio Rate: regular rate GI Inspection: normal to inspection Skin General: no rashes or lesions noted Neuro General: patient alert and patient awake Extrem General: normal to inspection and no pedal edema Psych Appearance: grossly normal Assessment & Plan Assessment & Plan narrative: 63-year-old female with a personal history of colon polyps. Surveillance colonoscopy is pursued today. Time-Based Coding :: [TOTAL MINUTES] spent with patient and on the chart (including review of chart, obtaining history, exam, reviewing outside data, placing orders, documenting exam and treatment plan, and counseling patient) on [DATE].
--- NOTE | 2024-07-16 11:13 | PM.PREOP ---
Pre-operative Note Interval Note History & Physical reviewed/Exam performed by Physician: Yes Changes to H&P: No ASA Class (for procedural sedation): II
--- NOTE | 2024-07-16 12:16 | PM.OP.COLON ---
Operative Date/Time/Diagnoses Date of procedure: 07/16/24 Time of procedure: 12:16 Pre-op diagnosis: Personal history of colon polyps Post-op diagnosis: same Procedure & Clinicians Study performed: Colonoscopy Same procedure as scheduled: Yes Indications: Personal history of colon polyps Surgeon: Pj Armstrong Procedure Notes SCOAP/Timeout: Done Procedure in detail: After the risks and benefits were explained, written and verbal informed consent was obtained. The patient was brought into the procedure room and placed into the left lateral decubitus position. Please see anesthesia notes for sedation details. Digital rectal examination was accomplished. The scope was introduced into the patient and advanced under direct visualization to the cecum as identified by the appendiceal orifice and ileocecal valve. The scope was slowly withdrawn to carefully examine the mucosa for any defects or lesions. Comprehensive imaging was accomplished throughout the rectum including the dentate line. The colon was decompressed, the scope was then removed from the patient who tolerated the procedure well. Pediatric colonoscope Bowel prep adequate Scope withdrawal time: 9 minutes Sedation minutes: 16 Specimen(s): none sent Complications: none Impression: No significant polyps mass lesions or inflammatory features identified throughout. Endoscopic diagnosis: Visually normal colonoscopy Post-procedure Plan for aftercare: Repeat colonoscopy in 7-10 years. Disposition: PACU
[2024-07-16 12:18] VITALS: BP 90/49; PULSE 49; RESP 12; TEMP 36.2; O2SAT 97
[2024-07-16] MEDS: LACTATED RINGERS 500 ML 1000 ML IV (12:20)
[2024-07-16 12:23] VITALS: BP 92/65; PULSE 55; RESP 12; O2SAT 98
[2024-07-16 12:28] VITALS: BP 105/68; PULSE 47; RESP 13; O2SAT 100
[2024-07-16 12:40] VITALS: BP 109/69; PULSE 52; RESP 17; O2SAT 100
== END 2024-07-16 12:45 | disposition home or self-care (01) ==
PROVIDERS: PCP Family Medicine; Referring Provider Internal Medicine Gastroenterology; Visit Provider Internal Medicine Gastroenterology
PROC: 0DJD8ZZ Inspection of Lower Intestinal Tract, Via Natural or Artificial Opening Endoscopic (ICD-10-PCS; CPT 45378; principal; 2024-07-16 11:30)
DX: Z12.11 Encounter for screening for malignant neoplasm of colon (principal); Z86.0100 Personal history of colon polyps, unspecified
CPT/HCPCS: 45378; J2704

== ENCOUNTER → 2025-05-28 09:56 | Outpatient (CLI) | payer OTHER, SELFPAY ==
[2024-09-19 09:42] VITALS: BMI 22.9
--- NOTE | 2025-05-28 09:58 | DI.RAD.S_ITS ---
PROCEDURE: XR DEXA AXIAL SKELETON
== END ==
LOC: RAD 09:57
PROVIDERS: PCP Family Medicine; Referring Provider Family Medicine; Visit Provider Family Medicine
DX: M81.0 Age-related osteoporosis without current pathological fracture (principal)
CPT/HCPCS: 77080

== ENCOUNTER → 2025-06-05 08:51 | Outpatient (CLI) | payer OTHER, SELFPAY ==
[2024-09-19 09:42] VITALS: BMI 22.9
--- NOTE | 2025-06-05 08:51 | DI.MG.S_ITS ---
MM diagnostic mammo BI: 06/05/2025. BI-RADS: 2 CLINICAL: 64-year old female for bilateral diagnostic mammogram. Tyrer-Cuzick lifetime risk of 11.0%. Current reported family history of breast cancer: mother. The patient reports a superficial palpable abnormality (1 month) in the left breast which corresponds to a skin lesion that has changed in color and become darker. The patient saw a cardiac tech yesterday who reportedly stated that the area is benign. PRIOR EXAMS 06/07/2024, 06/06/2023, 07/21/2022, 07/20/2021. MAMMOGRAPHY TECHNIQUE: 2D and 3D (tomosynthesis) digital mammographic views obtained, with additional images as needed for full coverage. Current study was also evaluated with a Computer Aided Detection (CAD) system. DENSITY C. The breasts are heterogeneously dense, which may obscure small masses. MAMMOGRAPHY FINDINGS Right: No suspicious mass, asymmetry, microcalcification, or other abnormality seen. Left: Lower at 6:00, Middle depth: Correlating with patient concern there is a skin lesion corresponding to surface marker present. The patient says that the skin finding was recently evaluated by a cardiac tech and was reportedly benign. No suspicious mass, asymmetry, microcalcification, or other abnormality seen. IMPRESSION: Right * No evidence of malignancy. Left * No evidence of malignancy with benign findings. RECOMMENDATIONS Left * Clinical follow-up is recommended, and further management of palpable abnormalities or other focal signs or symptoms should be based on the results of clinical evaluation. If palpable abnormality or other concerning symptom persists or progresses, further clinical evaluation should be considered. Bilateral * Annual screening mammography. COMMENTS: Findings and recommendations were conveyed to the patient during today's evaluation. OVERALL ASSESSMENT CATEGORY BI-RADS-2: Benign. The [employer] recommends annual screening mammography beginning at age 40 for women with average risk of breast cancer. ELECTRONICALLY SIGNED: Abby Mccarthy M.D. on 06/05/2025 at 09:47:44 AM PT Interpreting Station ID: [id number]
--- OUTSIDE RECORDS SUMMARY | 2025-06-07 13:51 | XMS_ITS | Encounter Summary ---
Author Organization [facility] Address [address] [place] [address] Care Team Providers Care Tobacco Sampler Name Role Phone Lubna Elena Primary Care Provider [phone] Encounter Details Date Type Department Care Team (Late st Contact Info) Description 01/31/2023 Documentation ORTHOPEDIC SURGERY - [place], [place] - [facility] [address] [facility] [address] [place] [id number] Betsy Pyle MA Social History Tobacco Use Types Packs/Day Years Used Date Smoking Tobacco: Never Assessed Comments Unknown Sex and Gender Information Value Date Recorded Sex Assigned at Not on file Legal Sex Female 2:23 PM PDT Gender Identity Not on file Sexual Orientation Not on file documented as of this encounter Progress Notes * Betsy Pyle MA - 01/31/2023 11:17 AM PDT Any recommendations on back concern or MRI or possibly can this be discussed at upcoming hip visit? documented in this encounter Plan of Treatment Not on file documented as of this encounter Visit Diagnoses Not on filedocumented in this encounter Care Teams Tobacco Sampler Relationship Specialty Start Date End Date LUBNA ELENA [address] [place], [place] [id number] PCP - General 12/16/22 documented as of this encounter
--- OUTSIDE RECORDS SUMMARY | 2025-06-07 13:51 | XMS_ITS | Encounter Summary ---
Author Organization [facility] Address [address] [place] [address] Care Team Providers Care Parts Product Analyst Name Role Phone Pcp, None Selected Primary Care Provider Unavail able Encounter Details Date Type Department Care Team ([facility] Contact Info) Description 09/18/2020 Abstract [facility] Information Management [address] [place] [address] [facility] Buyer Tobacco, Provider, Social History Tobacco Use Types Packs/Day Years Used Date Smoking Tobacco: Never Smokeless Tobacco: Never Alcohol Use Standard Drinks/Week Comments Yes 0 (1 standard drink = 0.6 oz pur e alcohol) AUDIT-C Answer Date Recorded Q1: How often do you have a drink containing alc ohol? Monthly or less 08/07/2020 Q2: How many drinks containi ng alcohol do you have on a typical day when you are drinking? 1 or 2 08/07/2020 Q3: How often do you have si x or more drinks on one occasion? Never 08/07/2020 Comments Unknown Sex and Gender Information Value Date Recorded Sex Assigned at Not on file Legal Sex Female 7:19 PM PDT Gender Identity Not on file Sexual Orientation Not on file documented as of this encounter Plan of Treatment Upcoming Encounters Date Type Department Care Team (Late Contact Info) Description 07/03/2025 8:00 AM PST Evaluation [facility] N[facility] Th[facility]at [address] [place] [phone] Rhina Marc, AuD [address] [address] documented as of this encounter Visit Diagnoses Not on filedocumented in this encounter Care Teams Parts Product Analyst Relationship Specialty Start Date End Date Pcp, None Selected PCP - General 11/01/24 documented as of this encounter
--- OUTSIDE RECORDS SUMMARY | 2025-06-07 13:51 | XMS_ITS | Clinical Summary ---
Author Organization Address [facility] [address] [address] Care Team Providers Care Rigging Up Worker Name Role Phone Lubna Moya Primary Care Provider [phone] Allergies Active Allergy Reactions Criticality Noted Date Comments Sulfa (Sulfonamide Antibiotics) Hives High 09/16 Medications magnesium citrate 125 mg Capsule Take 1 tablet by mouth daily Active Active Problems Problem Noted Date Diagnosed Date Low back pain 12/23/2022 Overview (02/24/2023): Last Assessment & Plan: See above treatment for right hip pain. Suspect really this is coming from her back. At least this is part of it. We will proceed with MRI of the hip and lumbar spine, continue PT, Tylenol and follow-up after imaging. Call with worsening symptoms. Knee pain, left 03/08/2022 Other specified disorders of bone density and structure, other site 03/08/2022 Hip pain, right 12/09/2021 Overview (02/24/2023): Last Assessment & Plan: Reviewed MRI of her lumbosacral spine and in her hip. Suspect multifactorial. Suspect a component of lumbar radiculopathy as well and is possible impingement symptoms from labral tear. At this point she has done a year physical therapy and still is having significant symptoms that are affecting her activity and quality of life. We will refer to Dr. Sher, for his evaluation regarding the hip. I think if he did not feel this is hip related then we will pursue appointment with Dr. Boateng or Dr. Zuñiga and possible steroid injections. Discussed this all with patient. She will continue with same treatment. Continue with physical therapy. She will call or come in with any worsening symptoms or concerns which were reviewed with her at length. Concussion with loss of cons ciousness of unspecified duration, subsequent encounter 06/26/2019 Traumatic fracture of facial bone 06/26/2019 Unsteady gait 06/26/2019 Chronic constipation 10/06/2018 Shingles 05/27/2016 Achilles tendinitis, right leg 08/25/2015 Streptococcal pharyngitis 05/05/2015 Abdominal pain 04/08/2015 Pain in unspecified ankle and joints of unspecif ied foot 01/29/2015 Duodenal ulcer 07/18/1969 Immunizations Immunization Administration Dates Next Due Influenza quad (PF) 09/19/2019 Influenza trivalent (PF) (3 years and up) 2012 Tdap 05/30/2018 Social History Tobacco Use Types Packs/Day Years Used Date Smoking Tobacco: Never Smokeless Tobacco: Never Tobacco Cessation:Counseling Given: Not Answered Alcohol Use Standard Drinks/Week Comments Yes 0 (1 standard drink = 0.6 oz pur e alcohol) Comments Unknown Sex and Gender Information Value Date Recorded Sex Assigned at Not on file Legal Sex Female 2:23 PM PDT Gender Identity Not on file Sexual Orientation Not on file Last Filed Vital Signs Vital Sign Reading Time Taken Comments Blood Pressure 112/70 02/24/2023 11:09 AM PDT Pulse 52 02/24/2023 11:09 AM PDT Temperature - - Respiratory Rate - - Oxygen Saturation 100% 02/24/2023 11:09 AM PDT Inhaled Oxygen Concentration - - Weight 59 kg (130 lb) 02/24/2023 11:09 AM PDT Height 165.1 cm (5' 5) 02/24/2023 11:09 AM PDT Body Mass Index 21.63 02/24/2023 11:09 AM PDT Plan of Treatment Health Maintenance Due Date Last Done Comments CT Colonography 1962 Colonoscopy 1962 Colorectal Cancer Screening 1962 Disability Screening 1962 FIT-DNA (COLOGUARD) 1962 Hepatitis C Screening 1962 Sigmoidoscopy 1962 HIV Screening 1977 Lipid Panel (Cholesterol Screening) 1980 Pap Smear 12/20/1983 Cervical Cancer Screening 1992 HPV/COTEST 1992 Breast Cancer Screening 2002 FIT (FOBT) 12/20/2007 Pneumococcal 50+ Years (1 of 1 - PCV) 2012 Zoster (1 of 2) 2012 Drug, Alcohol, and Depression Screening 07/18/2024 SOGIE 07/18/2024 Covid-19 Vaccine (1 - season) 2025 Influenza Vaccine (#1) 2025 09/19/2019, 2012 DTaP/Tdap/Td Vaccine (2 - Td or Tdap) 05/30/2028 RSV Vaccines (1 - 1-dose 75+ series) 2037 Insurance [facility] [id number] Care Teams Rigging Up Worker Relationship Specialty Start Date End Date LUBNA MOYA [address] [place], [place] [id number] PCP - General 12/16/22
--- OUTSIDE RECORDS SUMMARY | 2025-06-07 13:51 | XMS_ITS | Clinical Summary ---
Author Organization [facility] Address [address] [place] [address] Care Team Providers Care Car Ferry Master Name Role Phone Irasema Davis MD Primary Care Provider [phone] Social History Tobacco Use Types Packs/Day Years Used Date Smoking Tobacco: Never Assessed Comments Unknown Sex and Gender Information Value Date Recorded Sex Assigned at Female 08/11/2023 10:18 AM PST Legal Sex Female 10:18 AM PST Gender Identity Female 07/12/2024 1:45 PM PST Sexual Orientation Choose not to disclose 2023 1:45 PM PST Plan of Treatment Not on file Insurance [employer] Care Teams Car Ferry Master Relationship Specialty Start Date End Date Irasema Davis MD [address] [place] [address] PCP - General Family Medicine 06/25/24
--- OUTSIDE RECORDS SUMMARY | 2025-06-07 13:51 | XMS_ITS | Clinical Summary ---
Author Organization [facility] Address [address] [place] [address] Care Team Providers Care Logistic Manager Name Role Phone Pcp, None Selected Primary Care Provider Unavail able Allergies Active Allergy Reactions Criticality Noted Date Comments Sulfa (Sulfonamide Antibiotics) Hives 07/19 Medications No known medications Active Problems No known active problems Encounters Date Type Department Care Team Description 05/20/2025 3:00 PM PST Procedure visit [facility] Nose [facility] Th[facility] [address] [phone] Rhina Marc, Marva Sensorineural hearing loss (SNHL), bilateral (Primary Dx); Tinnitus, bilateral from Last 3 Months Immunizations Immunization Administration Dates Next Due FLU PF 6+Mos Quad (Fluzone, FluLaval, Fluarix) 0 09/19/2019 FLU PF 6+Mos Trivalent 0.5ML (Fluzone, FluLaval, Fluarix) 04/25/2013 Tdap (Boostrix,Adacel) 05/30/2018 Family History Medical History Relation Comments Breast cancer Mother Relation Status Comments Mother Social History Tobacco Use Types Packs/Day Years [...] Sign Reading Time Taken Comments Blood Pressure 115/70 08/07/2020 11:11 AM PST Pulse 74 08/07/2020 11:11 AM PST Temperature 36.4 C (97.6 F) 08/07/2020 11:11 AM PST Respiratory Rate - - Oxygen Saturation 99% 08/07/2020 11:11 AM PST Inhaled Oxygen Concentration - - Weight 59 kg (130 lb) 08/07/2020 11:11 AM PST Height 165.1 cm (5' 5) 08/07/2020 11:11 AM PST Body Mass Index 21.63 08/07/2020 11:11 AM PST Plan of Treatment Upcoming Encounters Date Type Department Care Team (Late st Contact Info) Description 07/03/2025 8:00 AM PST Evaluation [facility] Ear, Nose and Throat [address] [phone] Rhina Marc, [facility] [address] [address] Health Maintenance Due Date Last Done Comments Depression Screening (PHQ-2) 1974 Cervical Cancer Screening Combined Topic 1992 Cervical Cancer-Pap screening 1992 HPV/Cotest 1992 Colorectal Cancer Screening (Colonoscopy) 12/20/2007 Colorectal Cancer Screening (FOBT) 12/20/2007 Colorectal Cancer Screening (Fecal DNA) 12/20/2007 Colorectal Cancer Screening Combined 12/20/2007 HM Pneumococcal Adult 50+ (1 of 1 - PCV) 2012 COVID-19 Vaccine (4 - 2024-2 6 season) 2025 07/09/2021, 10/15/2020, 09/24/2020 Influenza Vaccine (#1) 2025 0, 04/25/2013 Breast Cancer Screening 06/06/2025 06/06/2023 DTaP,Tdap,and Td Vaccines (2 - Td or Tdap) 05/30/2028 05/30/2018 RSV Patients Over 60 years O R qualifying ( Patients) (1 - 1-dose 75+ series) 2037 Zoster Vaccines Completed 05/02/2021, 08/08/2020 HPV Vaccines Aged Out No longer eligi ble based on patient's age to complete this topic Hepatitis A Vaccines Aged Out No long er eligible based on patient's age to complete this topic Hepatitis B Vaccines Aged Out No long er eligible based on patient's age to complete this topic IPV Vaccines Aged Out No longer eligi ble based on patient's age to complete this topic MMR Vaccines Aged Out No longer eligi ble based on patient's age to complete this topic Insurance [facility] Care Teams Logistic Manager Relationship Specialty Start Date End Date Pcp, None Selected PCP - General 11/01/24
--- OUTSIDE RECORDS SUMMARY | 2025-06-07 13:51 | XMS_ITS | Clinical Summary ---
Author Organization [facility] Address [address] [place] [address] Phone [phone] Care Team Providers Care Guide Delegate Name Role Phone Unavailable Primary Care Provider Unavailabl e Allergies Active Allergy Reactions Criticality Noted Date Comments Sulfa Antibiotics Hives Low 10/05/2018 Medications B Complex capsule Take 1 by mouth once a day 01/29/2015 Active cholecalciferol (D2000 Ultra Strength) 50 MCG (2000 UT) capsule 1 capsule once a day 09/19/2019 Active Magnesium Citrate 125 MG capsule Take 1 tablet by mouth Daily. Active glucosamine-cho ndroitin 500-400 MG tablet Take 1 tablet by mouth 3 (three) times a day. Active Active Problems Problem Noted Date Diagnosed Date Lesion of skin of breast 07/09/2023 Assessment & Plan (07/09/2023 5:53 PM PST): Reviewed mammogram and ultrasound which were unrevealing. The area of concern at 7:00 outside the areola really just feels like a skin lesion, dry. We will use hydrocortisone twice daily for 7 to 10 days and if it does not resolve patient will call or come back in. Discussed the importance of close follow-up. Discussed that the imaging was negative but if lesion persist then we will need to workup further and we discussed what that would be. Had a lengthy discussion about it. Nipple lesion 05/12/2023 Assessment & Plan (05/13/2023 9:04 AM PDT): Will refer for diagnostic mammogram. Follow-up after we will have her use hydrocortisone to this area. Osteopenia of both hips 05/12/2023 Assessment & Plan (05/12/2023 9:37 AM PDT): Continue with strength training and exercise Increase dietary calcium Continue vit d supplement Dexa in January and follow up after History of stress fracture 05/12/2023 Stress fracture of left tibia with routine heali ng 05/12/2023 Assessment & Plan (05/13/2023 9:03 AM PDT): We will repeat bone density in 9 months. Reviewed the last 1. Low back pain 12/23/2022 Assessment & Plan (12/24/2022 9:39 AM PDT): See above treatment for right hip pain. Suspect really this is coming from her back. At least this is part of it. We will proceed with MRI of the hip and lumbar spine, continue PT, Tylenol and follow-up after imaging. Call with worsening symptoms. Postmenopausal status 12/22/2022 Assessment & Plan (07/09/2023 6:13 PM PST): Bone density pending Assessment & Plan (05/13/2023 9:04 AM PDT): Previously Vagifem was not helpful. We discussed other options. At this point she will hold off. Family history of rectal cancer 03/08/2022 Assessment & Plan (05/13/2023 9:05 AM PDT): Up-to-date on screening. It is her sister son who was diagnosed at 39. We will decrease her surveillance time and due in 7 years. Knee pain, left 03/08/2022 Other specified disorders of bone density and structure, other site 03/08/2022 Unsteady gait 06/26/2019 Colon cancer screening 05/30/2018 Assessment & Plan (05/12/2023 9:32 AM PDT): Up to date on colonoscopy No symptoms Due in 2028 but due to nephew with rectal cancer at 39, stage 4; repeat in 2025 Routine general medical exam ination at a health care facility 04/20/2018 Assessment & Plan (05/13/2023 9:04 AM PDT): Discussed self breast exams, calcium, vitamin D, diet and exercise We reviewed including TSH, CBC, CMP and lipid. Pap and HPV not performed. Will do next week Up-to-date on immunizations and preventative care Follow-up in 1 year or as needed. Will do mammo Up-to-date on colonoscopy Shingles 05/27/2016 Achilles tendinitis, right leg 08/25/2015 Assessment & Plan (05/12/2023 9:26 AM PDT): Getting better with inversion table Duodenal ulcer 07/18/1969 Assessment & Plan (05/12/2023 9:26 AM PDT): Improved Doing better with better diet Family history of malignant neoplasm of breast 0 07/18/1969 Resolved Problems Problem Noted Date Diagnosed Date Resolved Date Hip pain, right 12/09/2021 05/12/2023 Assessment & Plan (01/29/2023 8:54 PM PDT): Reviewed MRI of her lumbosacral spine and [...] which were reviewed with her at length. Assessment & Plan (12/23/2022 12:03 PM PDT): Suspect multifactorial involving hip and lumbar with possible herniated disc Will proceed with mri hip and lumbar spine Continue with PT Nsaids contraindicated due to previous gi bleed Fu after imaging Glucosamine chondroitin sulfate Tylenol prn Concussion with loss of cons ciousness of unspecified duration, subsequent encounter 06/26/2019 05/12/2023 Traumatic fracture of facial bone 06/26/2019 05/12/2023 Streptococcal pharyngitis 05/05/2015 Abdominal pain 04/08/2015 05/12/2023 Pain in unspecified ankle an d joints of unspecified foot 01/29/2015 05/12/2023 Immunizations Immunization Administration Dates Next Due Flu Vaccine, NOT preservativ e free, trivalent, split virus 04/25/2013 Flu Vaccine, PRESERVATIVE FREE, Quadrivalent 10/2019 Tdap 05/30/2018 Zoster, Recombinant 05/02/2021,08/08/2020 Social History Tobacco Use Types Packs/Day Years Used Date Smoking Tobacco: Never Passive Smoke Exposure: Never Smokeless Tobacco: Never Tobacco Cessation:Counseling Given: Not Answered Alcohol Use Standard Drinks/Week Comments Yes 7 (1 standard drink = 0.6 oz pur e alcohol) Comments No Sex and Gender Information Value Date Recorded Sex Assigned at Not on file Legal Sex Female 7:15 AM PDT Gender Identity Not on file Sexual Orientation Not on file Last Filed Vital Signs Vital Sign Reading Time Taken Comments Blood Pressure 100/68 07/07/2023 1:57 PM PST Pulse 56 07/07/2023 1:57 PM PST Temperature 36.2 C (97.2 F) 05/12/2023 8:57 AM PDT Respiratory Rate 14 05/30/2018 10:44 AM PST Oxygen Saturation 99% 07/07/2023 1:57 PM PST Inhaled Oxygen Concentration - - Weight 59.4 kg (131 lb) 05/12/2023 8:57 AM PDT Height 165.1 cm (5' 5) 05/12/2023 8:57 AM PDT Body Mass Index 21.8 05/12/2023 8:57 AM PDT Plan of Treatment Health Maintenance Due Date Last Done Comments CT Colonography 1962 FIT-DNA 1962 FIT 1962 Sigmoidoscopy 1962 HIV Screening 1977 Pneumococcal Vaccine: 50+ Years (1 of 1 - PCV) 2012 Pap Smear 11/05/2023 11/04/2020, 10/17, 05/30/2018, Additional history exists COVID-19 Vaccine ( season) 2025 07/09/2021, 10/15/2020, 09/24/2020 Influenza Vaccine (#1) 2025 09/19/2019, 2012 Mammogram 06/06/2025 06/06/2023, 10/2022, 07/20/2021, Additional history exists Cervical Cancer Screening 11/04/2025 HPV/Cotest 11/04/2025 11/04/2020, 04/2 , 11/04/2020, Additional history exists Colonoscopy 11/06/2025 11/06/2018, 05/31/2013 Colorectal Cancer Screening 11/06/2025 DTaP/Tdap/Td Vaccines (2 - Td or Tdap) 05/30/2028 05/30/2018 Bone Density Monitoring 07/07/2028 07/07/2023, 01/27 RSV Vaccination aged 60+ and Patients (1 - 1-dose 75+ series) 2037 Hepatitis C Screening Completed 09/04/2020 Zoster Vaccines Completed 05/02/2021, 08/08/2020 HIB Vaccines Aged Out No longer eligi ble based on patient's age to complete this topic HPV Vaccines (No Doses Required) Completed Hepatitis A Vaccines Aged Out No long er eligible based on patient's age to complete this topic IPV Vaccines Aged Out No longer eligi ble based on patient's age to complete this topic Meningococcal Vaccine Aged Out No haley raine eligible based on patient's age to complete this topic Rotavirus Vaccines Aged Out No longer eligible based on patient's age to complete this topic Procedures Procedure Name Priority Date/Time Associated Diagnosis Comments BONE DENSITY GT CONV 07/07/2023 BI MAMMOGRAM DIAGNOSTIC BILATERAL 06/06/2023 HPV GT CONVERSION Routine 11/04/2020 12:13 PM PDT PAP TEST + HIGH-RISK HPV REGARDLESS OF PAP DX W/REFLEX Routine 11/04/2020 12:13 PM PDT HEPATITIS C VIRUS (HCV) ANTIBODY SCREEN W/REFLEX TO QUANTITATIVE PCR AND GENOTYPING Routine 09/04/2020 7:32 AM PST COLORECTAL CANCER SCREENING GT CONV Routine 11/06/2018 11:59 PM PDT from Last 3 Months or Most Recently Relevant to Health Maintenance Results * (ABNORMAL) BONE DENSITY (07/07/2023) Pathologist [facility], [place] BONE DENSITY Osteopenia (A) Normal Anatomical Region Laterality Modality Radiographic Elaine ging Narrative 07/07/2023 Ordered by an unspecified provider. us [employer] Provider IMG DXA PROCEDURES Edited Res ult - Final * (ABNORMAL) Bilateral diagnostic mammogram (06/06/2023) MAMMOGRAM Additional imaging needed Anatomical Region Laterality Modality Breast Bilateral Mammography Narrative 06/06/2023 Ordered by an unspecified provider. us [employer] Provider IMG BI PROCEDURES Edited Resu lt - Final * HPV GT CONVERSION (11/04/2020 12:13 PM PDT) Pathologist [facility] [place] HUMAN PAPILLOMA VIRUS (HIGH RISK) DNA Negative Negative GT - LEGACY CONVERSION 11/04/2020 12:1 3 PM PDT Result Jovanni Cazares MD LAB OBSERVATION METHODS Felisha l Result GT - LEGACY CONVERSION * PAP TEST + HIGH-RISK HPV REGARDLESS OF PAP DX W/REFLEX (11/04/2020 12:13 PM PDT) Pathologist [facility] [place] Pap Normal GT - L EGACY CONVERSION 11/04/2020 12:1 3 PM PDT Result Jovanni Cazares MD LAB CYTOLOGY ORDERABLES Felisha l Result GT - LEGACY CONVERSION * HEPATITIS C (HCV) ANTIBODY SCREEN W/ REFLEX TO QUANT PCR AND GENOTYPING (09/04/2020 7:32 AM PST) Pathologist [facility] [place] HEPATITIS C ANTIBODY, SERUM 0.1 0.0 - 0.9 GT - LEGACY CONVERSION 09/04/2020 7:32 AM PST us Naentte Cazares MD LAB BLOOD ORDERABLES Final R esult GT - LEGACY CONVERSION * COLORECTAL CANCER SCREENING (11/06/2018 11:59 PM PDT) Colonoscopy normal ATHEN A - LEGACY CONVERSION 11/06/2018 11:5 9 PM PDT Nanette Cazares MD LAB OBSERVATION METHODS Felisha l Result Performing Organization Address City/[facility]/ZIP Co de Phone Number GT - LEGACY CONVERSION from Last 3 Months or Most Recently Relevant to Health Maintenance Insurance NON-CONTRACTED [facility]
== END ==
LOC: MAMMO 08:51
PROVIDERS: PCP Family Medicine; Referring Provider Family Medicine; Visit Provider Family Medicine
DX: N63.0 Unspecified lump in unspecified breast (principal); L81.9 Disorder of pigmentation, unspecified; R92.333 Mammographic heterogeneous density, bilateral breasts; Z80.3 Family history of malignant neoplasm of breast
CPT/HCPCS: 77066; G0279